=== PATIENT | female | born 1990 | race Caucasian/White ===

== ENCOUNTER 2017-09-13 05:50 | Inpatient (IN) ==
--- OUTSIDE RECORDS SUMMARY | 2017-09-13 05:57 | External Medical Summary | Continuity of Care Document ---
:1990 Author Organization [facility] Address [address] [place], [place] [id number] Phone Care Team Providers Name Role Phone Nicholas Escobedo MD, FAAFP Unavailable Unavailable Allergies, Adverse Reactions, Alerts Substance Reaction Severity Status No Known Drug Allergies Unknown Active Medications Medication Instructions Dosage Effective Dates Status Comments (start - stop) valacyclovir 500 mg take 1 tablet by 500 MG - Active tablet oral route every day 27 mg-0.8 take 1 by Oral Not Available - Active mg tablet route every day Problems Condition Effective Dates (start - stop) Clinical Status Encntr for testing tech exam (general) - (routine) w/o abn findings Follow-Up, Routine - Polyhydramnios, third trimester, not - applicable or unsp Encounter for suprvsn of normal - , third trimester Encounter For Screening For - Streptococcus B 35 weeks gestation of - Mild hyperemesis gravidarum - Encounter for suprvsn of normal - , first trimester 13 weeks gestation of - Herpesviral infection, unspecified - Polyhydramnios, third trimester, not - applicable or unsp Encounter for suprvsn of normal - , third trimester 38 weeks gestation of - Supervision of other high risk - pregnancies, third trimester Polyhydramnios, third trimester, not - applicable or unsp 37 weeks gestation of - Supervision of other high risk - pregnancies, third trimester Polyhydramnios, third trimester, not - applicable or unsp 38 weeks gestation of - Threatened Mild hyperemesis gravidarum - Maternal care for excess growth, - third trimester, unsp Polyhydramnios, third trimester, not - applicable or unsp 35 weeks gestation of - Mild hyperemesis gravidarum - Maternal care for excess growth, - third trimester, unsp 30 weeks gestation of - Mild hyperemesis gravidarum - Encounter for suprvsn of normal - , second trimester 20 weeks gestation of - Maternal care for excess growth, - second tri, unsp Encounter for suprvsn of normal - , second trimester 17 weeks gestation of - Maternal care for excess growth, - second tri, unsp 20 weeks gestation of - Maternal care for excess growth, - third trimester, unsp Polyhydramnios, third trimester, not - applicable or unsp 35 weeks gestation of - Maternal care for excess growth, - third trimester, unsp Polyhydramnios, third trimester, not - applicable or unsp 35 weeks gestation of - Polyhydramnios, third trimester, not - applicable or unsp 38 weeks gestation of - Polyhydramnios, third trimester, not - applicable or unsp 37 weeks gestation of - Abnormal weight loss Encntr for f/u exam aft trtmt for cond oth than malig neoplm Encounter for removal of intrauterine - contraceptive device Pap Smear Screening, Cervix - Encounter for insertion of - intrauterine contraceptive device Encounter for suprvsn of normal - , first trimester 9 weeks gestation of - Encounter for suprvsn of normal - , second trimester 23 weeks gestation of - Encounter for suprvsn of normal - , second trimester 26 weeks gestation of - Encounter for suprvsn of normal - , third trimester 32 weeks gestation of - Herpes Simplex Virus Active Active Procedures Procedure Date OB Visit No Charge Results Test Name Date and Time Measure Units Reference Range Abnormal Flag Comments Panel Description: STREPTOCOCCUS, GROUP B CULTURE STREPTOCOCCUS, GROUP B 15:15:00 SEE NOTE A STREPTOCOCCUS , GROUP B CULTURE CULTURE MICRO NUMBER: [id number] TEST STATUS: FINAL SPECIMEN SOURCE: VAGINAL/RECTAL SPECIMEN QUALITY: ADEQUATE RESULT: Group B Streptococcus isolated Beta-hemolytic Streptococci are predictably susceptible to penicillin and other beta-lactams. Susceptibility testing not routinely performed. Note per CDC guidelines optimal recovery is achieved by swabbing both the lower vagina and rectum (through the anal sphincter).Test performed at [facility]. [id number] [place] [address]Ubmvltyf: SHRUTHI MO DO,MPH Advance Directives Directive Yes / No Effective Date File Name Unknown Encounters Encounter Practice Location Reason(s) Diagnoses Date Provider Care Team Description For Visit Members [place] Herpesviral Sob[place] In Womens infection, 0-201 [place] [place], unspecifiedPolyhy 8 [address] dramnios, third Medical 152, trimester, not [facility] [place], applicable or [facility], [place], unspEncounter for Suite , suprvsn of normal 120, [place] , third [place], tel:[phone] weeks [place] [id number], [place]. tel:[phone] Adam [place] Supervision of Rebecca In Womens other high risk 6-201 [place] [place], pregnancies, 8 700 [address] third Medical 1522, trimesterPolyhydr [facility] [place], amnios, [facility] Hugo Ibanez [place], trimester, not 120, [id number], applicable or [place], [place] unsp38 weeks [place], tel:[phone] gestation [phone] , [place]. tel: [phone] [facility] Polyhydramnios, Wilmar-2 Rebecca In Womens Ultrasound third trimester, 6-201 [place] [place], not applicable or 8 700 [address] unsp38 weeks Medical 1522, gestation of [facility] [place] Ibanez, 120, , [place], tel:[phone] , [place]. tel: [phone] [facility] Supervision of Wilmar-1 Rebecca In Womens other high risk 9-201 [place] [place], pregnancies, 8 700 PO Box third Medical 1522, trimesterPolyhydr [facility], amnios, third [place]bane[place], trimester, not 120, [id number], applicable or [place], [place] unsp37 weeks [place], tel:+ gestation [phone] , [place]. tel: [phone] [facility] Polyhydramnios, Wilmar-1 Rebecca In Womens Ultrasound third trimester, 9-201 [place] [place], not applicable or 8 700 [address] Box unsp37 weeks Medical 1522, gestation of [facility] [place] Ibanez, 120, , [place], tel:[phone] , [place]. tel: [phone] [facility] Polyhydramnios, Wilmar-1 Rebecca In Womens third trimester, 1-201 [place] [place], not applicable or 8 700 PO Box unspEncounter for Medical 1522, suprvsn of normal [facility], , third [place] Ibanez, trimesterEncounte 120, [id number], r For [place] Screening For [place], tel:[phone] [id number] weeks gestation , [place]. of tel: [phone] [facility] Maternal care for Wilmar-1 Rebecca In Womens Ultrasound excess 1-201 [place] [place], growth, third 8 700 PO Box trimester, Medical 1522, unspPolyhydramnio [facility] s, third [place] Ibanez, trimester, not 120, , applicable or [place], [place] unsp35 weeks [place], tel: gestation of , [place]. tel: [phone] [facility] Mild hyperemesis Wilmar-0 Sobbing Referring In Womens gravidarumMaterna 5-201 Deepak. Provider: coby Pleitez care for excess 8 700 Deepak [address] growth, Medical Sobbing L, 1522, third trimester, Center [address] [place] [address], unspPolyhydramnio [facility] [place], s, third Suite Center [id number], trimester, not 120, Drive [place] applicable or Antoni, [address], tel: unsp35 weeks TAINA, [place], [place] [address], [place], [address]. [place]. tel: tel: [phone] [facility] Maternal care for Wilmar-0 Rebecca In Womens Ultrasound excess 5-201 [place] NIDA, growth, third 8 700 PO Box trimester, Medical 1522, unspPolyhydramnio [facility], s, third [place] Ibanez, trimester, not 120, [id number], applicable or [place], [place] unsp35 weeks [place], tel: gestation of , [place]. tel: [phone] [facility] Encounter for Gabriel-1 Rebecca In Womens suprvsn of normal 8-201 [place] NIDA, , third 8 700 PO Box [email or web address] weeks Medical 1522, gestation of [facility], Hugo Ibanez [place], 120, [id number], [place], tel:901 , [place]. tel: [phone] [facility] Mild hyperemesis Gabriel-0 Sobbing In Womens gravidarumMaterna 5-201 [facility]. [facility] NIDA, l care for excess 8 700 PO Box growth, Medical 1522, third trimester, [facility], unsp[address], [place], gestation of Suite , 120, [place] Anton[place], tel: [place], 114, [place]. tel: [phone] Adam [place] Encounter for May-0 Rebecca In Womens suprvsn of normal 9-201 [place] [place], , second 8 700 PO Box [email or web address] weeks Medical 1522, gestation of [facility], [place] Ibanez, 120, [id number], [place], tel:[phone] , [place]. tel: [phone] Adam [place] Encounter for Apr-1 Rebecca In Womens suprvsn of normal 7-201 [place] [place], , second 8 700 PO Box [email or web address] weeks Medical 1522, gestation of [facility], [place] Ibanez, 120, , [place], [place], tel:[phone] , [place]. tel: [phone] Adam [place] Mild hyperemesis Mar-2 Rebecca In Womens gravidarumEncount 2-201 [place] NIDA, er for suprvsn of 8 700 PO Box normal , Medical 1522, second [facility], [id number] weeks [place], gestation of 120, , [place], [place], tel:[phone] , [place]. tel: [phone] Adam [place] Maternal care for Mar-2 Rebecca In Womens Ultrasound excess 2-201 [place] NIDA, growth, second 8 700 PO Box tri, unsp20 weeks Medical 1522, gestation of [facility], [place] Ibanez, 120, , [place], tel:[phone] , [place]. tel: [phone] Adam [place] Maternal care for Mar-0 Rebecca In Womens excess 1-201 [place] [place], growth, second 8 700 PO Box tri, Medical 1522, unspEncounter for [facility], suprvsn of normal [place], , second 120, [id number], [email or web address] weeks [place], gestation of [place], tel:[phone] , [place]. tel: [phone] Adam [place] Mild hyperemesis Feb-0 Rebecca In Womens gravidarumEncount 6-201 [place] NIDA, er for suprvsn of 8 700 PO Box normal , Medical 1522, first [email or web address] [facility], weeks gestation [place] Ibanez, of 120, , [place], [place], tel:[phone] , [place]. tel: [phone] Adam [place] Encounter for Luis A-0 Rebecca In Womens suprvsn of normal 8-201 [place] NIDA, , first 8 700 PO Box trimester9 weeks Medical 1522, gestation of [facility], [place] Ibanez, 120, , [place], [place], tel:[phone] , [place]. tel: [phone] Adam [place] Threatened Sep-2 Rebecca In Womens 9-201 [place]. Miguel ALVA, 7 700 PO Box Medical 1522, [place], [place] Ibanez, 120, , [place], [place], tel:[phone] , [place]. tel: [phone] Adam [place] Encntr for testing tech Aug-0 Rebecca In Womens exam (general) 1-201 [place] NIDA, (routine) w/o abn 7 700 PO Box findingsEncounter Medical 1522, for removal of [facility], intrauterine [place]z, contraceptive 120, , device [place], [place], tel:[phone] , [place]. tel: [phone] Adam [place] Abnormal weight Feb-2 Rebecca In Womens lossEncntr for 1-201 [place] NIDA, f/u exam aft 7 700 PO Box trtmt for cond Medical 1522, oth than malig [place], neoplm [place] Ibanez, 120, , [place], [place], tel:[phone] , [place]. tel:[phone] [place] Encounter for Luis A-1 Rebecca In Womens insertion of 2-201 [place] NIDA, intrauterine 7 700 PO Box contraceptive Medical 1522, [facility], [facility] [place], 120, [id number], [place], tel:+ [phone] , [place]. tel: [phone] Adam [place] Gabriel-2 Rebecca In Womens Follow-Up, 9- [facility] [place], Routine 6 700 PO Box Medical 1522, [place] [address] Mj, [facility] [place], 120, [id number], [place], tel:[phone] , [place]. tel: [phone] Adam [place] Mar-2 Rebecca Referring In Womens 3-201 [place]. Provider: Health [place], 6 700 [place] PO Box Medical Rebecca L, 1522, [place] [address], [facility] [place], 120, [place] [id number], Antoni [facility] 120, [place], Antoni, tel:[phone] [place], , [place]. [id number]. tel: tel: [phone] Adam [place] Feb-1 Rebecca In Womens 9-201 [facility] [place], 6 700 PO Box Medical 1522, [address] [address] Mj, [facility] [place], 120, [id number], [place], tel:[phone] , [place]. tel: [phone] [place] Nov-1 Rebecca In Womens 3-201 [facility] [place], 5 700 PO Box Medical 1522, [address], [facility] [place], 120, [id number], [place], tel:[phone] , [place]. tel: [phone] [place] Pap Smear Oct-1 Rebecca In Womens Screening, Cervix 3-201 [facility] [place], 5 700 PO Box Medical 1522, [place] [address] Mj, [facility] [place], 120, [id number], [place], tel:[phone] , [place]. tel: [phone] [place] Oct-0 Rebecca In Womens 5-201 [facility] [place], 5 700 PO Box Medical 1522, Center Dr Mj, [place], 120, [id number], [place], tel:[phone] , [place]. tel: [phone] Family History Family Member Diagnosis Age At Onset No family history of Colon Cancer Maternal Grandmother Thyroid Disorder Mother Thyroid Disorder No family history of Ovarian Cancer No family history of Venous Thrombosis No family history of Stroke No family history of Lung Disease Sister Thyroid Disorder No family history of Kidney Disease No family history of Osteoporosis No family history of Diabetes No family history of Uterine Cancer No family history of Hypertension No family history of Breast Cancer No family history of Epilepsy No family history of Cardiovascular Disease No family history of Pulmonary Embolism Immunizations Vaccine Date Status Comments Tdap completed Source: New Immunization Record Tdap completed Source: New Immunization Record Influenza, seasonal, injectable, completed Note: work ; Source: Other preservative free, 3 yrs or Provider older Td (adult) preservative free completed Note: Per Pt report ; Source: Other Provider Payers Payer name Insurance type Covered democrat ID Authorization(s) [employer] 39254 CI [id number] [employer] 42677 CI [id number] [employer] 54658 CI [id number] Social History Type Description Quantity Date Captured Alcohol Use Details No Caffeine Use Details Unknown Tobacco Use Status Unknown Smoking Status Never smoker Vital Signs Date / Height Weight BMI Pulse Blood Temperature Respiratory Body Head BMI Time: Rate Pressure Rate Surface Circumference percentile Area 154.90 29.2 127/72 2018 lbs 7 mm[Hg] 3:35 kg/m PM eter (2) Chief Complaint And Reason For Visit Unknown Chief Complaint And Reason For Visit Reason For Referral Reason For Referral Unknown Plan Of Care Date Type Action Status Appointment Pranav Young BOOKED Appointment Pranav Young BOOKED Appointment Pranav Young BOOKED Future Order: Radiology Order Complete OB Ultrasound > 14 Weeks Ordered ([id number]) Future Order: Radiology Order Ultrasound OB Follow-up ([id number]) Ordered Future Order: Radiology Order Biophysical Profile without NST Ordered ([id number]) Future Order: Radiology Order Biophysical Profile without NST Ordered ([id number]) Future Order: Radiology Order Biophysical Profile without NST Ordered ([id number]) Future Order: Radiology Order Biophysical Profile without NST Ordered ([id number]) Future Order: Lab Order Pap Smear With HPV Reflex If ASCUS Ordered ([id number]) Date Type Problem Goal Intervention Status Start Date Unknown. History Of Present Illness Encounter Date Complaint History Of Present Illness This patient has no known history of present illness Functional Status Encounter Date Functional Assessment Cognitive Assessment Unknown Medications Administered Medication Instructions Dosage Effective Dates (start - stop) Status Comments Drug Treatment Unknown Instructions Date Instruction Additional Information nutrition and weight gain counseling, special diet HIV and other routine tests risk factors identified by history anticipated course of care toxoplasmosis precautions (cats / raw meat) sexual activity exercise indications for ultrasound influenza vaccine environmental / work hazards travel use of any medications (including supplements, vitamins, herbs, OTC drugs) domestic violence seat belt use childbirth classes / hospital facilities hospital registration genetic testing Giving encouragement to exercise Related to Body mass index 29.0-29.9 ACOG book HIV and other routine tests risk factors identified by history anticipated course of care nutrition and weight gain counseling, special diet toxoplasmosis precautions (cats / raw meat) sexual activity exercise indications for ultrasound influenza vaccine environmental / work hazards travel use of any medications (including supplements, vitamins, herbs, OTC drugs) domestic violence seat belt use childbirth classes / hospital facilities hospital registration genetic testing new ob handbook
--- OUTSIDE RECORDS SUMMARY | 2017-09-13 05:57 | External Medical Summary | Continuity of Care Document ---
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) w/o abn findings Follow-Up, Routine - Maternal care for excess growth, - [...] or unsp 37 weeks gestation of - Polyhydramnios, third trimester, not - applicable or unsp Encounter for suprvsn of normal - , third trimester Encounter For Screening For - Streptococcus B 35 weeks gestation of - Abnormal weight loss [...] Simplex Virus Active Active Procedures Procedure Date biophys prfl w/o nstress test Results Test Name Date and Time Measure Units Reference Range Abnormal Flag Comments Unknown Advance Directives Directive Yes / No Effective Date File Name Unknown Encounters Encounter Practice Location Reason(s) Diagnoses Date Provider Care Team Description For Visit [facility] Herpesviral Aug- Sobbing In Womens infection, 0-201 [facility], unspecifiedPolyhy 8 700 [address] dramnios, third Medical 1522, trimester, not [facility], applicable or [facility], [place], unspEncounter for [id number], suprvsn of normal 120, [place] , third [place], tel:[phone] [email or web address] [place] [address], [place]. tel: [phone] Adam [place] Supervision of Aug- Rebecca In Womens other high risk 6-201 [facility], pregnancies, 8 700 [address] third Medical 1522, trimesterPolyhydr [facility], amnios, third [place], trimester, not 120, [id number], applicable or [place], unsp38 weeks [place], tel:[phone] gestation of [phone] [id number] , [place]. tel:[phone] Adam [place] Polyhydramnios, Aug- Rebecca In Womens Ultrasound third trimester, 6-201 [facility], not applicable or 8 700 [address] unsp38 weeks Medical 1522, gestation of [facility], [place] Ibanez, 120, [id number], [place], tel:[phone] , [place]. tel:[phone] Adam [place] Supervision of Aug-1 Rebecca In Womens other high risk 9- [facility], pregnancies, 8 700 PO Box third Medical 1522, trimesterPolyhydr [facility], amnios, third [place] Ibanez, trimester, not 120, [id number], applicable or [place], [place] unsp37 weeks [place], tel: gestation of [id number] , [place]. tel: [phone] [facility] Polyhydramnios, Aug-1 Rebecca In Womens Ultrasound third trimester, [facility], not applicable or 8 700 [address] unsp37 weeks Medical 1522, gestation of [facility], [place] Ibanez, 120, [id number], [place], tel:[phone] , [place]. tel: [phone] Adam [place] Polyhydramnios, Aug-1 Rebecca In Womens third trimester, [facility], not applicable or 8 700 PO Box unspEncounter for Medical 1522, suprvsn of normal [facility], , third [place] Ibanez, trimesterEncounte 120, [id number], r For [place], Screening For [place], tel: Streptococcus B35 [id number] weeks gestation , [place]. of tel: [phone] Adam [place] Maternal care for Aug-1 Rebecca In Womens Ultrasound excess [facility] NIDA, growth, third 8 700 PO Box trimester, Medical 1522, unspPolyhydramnio [facility], s, third [place] Ibanez, trimester, not 120, [id number], applicable or [place], [place] unsp35 weeks [place], tel: gestation of [id number] , [place]. tel: [phone] Adam [place] Mild hyperemesis Wilmar-0 Sobbing Referring In Womens gravidarumMaterna 5-201 Deepak. Provider: coby Pleitez care for excess 8 700 Deepak [address] growth, Medical Sobbing L, 1522, third trimester, Center [address] [place] [address], [address], Medical [place], s, third [address] [place] [id number], trimester, not 120, Drive [place] applicable or [place], [address], tel:+ unsp35 weeks TANIA, [place], [place] [address], [place], [address]. [place]. tel: tel: [phone] Adam [place] Maternal care for Wilmar-0 Rebecca In Womens Ultrasound excess 5-201 [facility] NIDA, growth, third 8 700 PO Box trimester, Medical 1522, unspPolyhydramnio [facility], s, third [place] Ibanez, trimester, not 120, [id number], applicable or [place], unsp35 weeks [place], tel: gestation of , [place]. tel: [phone] Adam [place] Encounter for Gabriel-1 Rebecca In Womens suprvsn of normal 8-201 [facility] NIDA, , third 8 700 [address] [email or web address] weeks Medical 1522, gestation of [facility], [place] Ibanez, 120, , [place], [place], tel:[phone] , [place]. tel: [phone] Adam [place] Mild hyperemesis Gabriel-0 Sobbing In Womens gravidarumMaterna 5-201 Deepak. [facility] NIDA l care for excess 8 700 PO Box growth, Medical 1522, third trimester, [facility], unsp30 weeks [place], [place], gestation of Suite , 120, [place] Anton[place], tel: [place], 114, [place]. tel: [phone] Adam [place] Encounter for May-0 Rebecca In Womens suprvsn of normal 9-201 [facility] NIDA, , second 8 700 [address] Box [email or web address] weeks Medical 1522, gestation of [facility], [place] Ibanez, 120, , [place], [place], tel:[phone] , [place]. tel: [phone] Adam [place] Encounter for Apr-1 Rebecca In Womens suprvsn of normal 7-201 [facility] NIDA, , second 8 700 PO Box [email or web address] weeks Medical 1522, gestation of [facility], [place] Ibanez, 120, , [place], [place], tel:+ [phone] , [place]. tel:[phone] [facility] Mild hyperemesis Mar-2 Rebecca In Womens gravidarumEncount 2-201 [facility] PA, er for suprvsn of 8 700 PO Box normal , Medical 1522, second [facility], weeks [place] Ibanez, gestation of 120, , [place], [place], tel:+ [phone] , [place]. tel:[phone] [facility] Maternal care for Mar-2 Rebecca In Womens Ultrasound excess 2-201 [facility] PA, growth, second 8 700 PO Box tri, unsp20 weeks Medical 1522, gestation of [facility], [place] Ibanez, 120, , [place], [place], tel:+ [phone] , [place]. tel: [phone] [facility] Maternal care for Mar-0 Rebecca In Womens excess 1-201 [facility], growth, second 8 700 PO Box tri, Medical 1522, unspEncounter for [facility], suprvsn of normal [place], , second 120, , [email or web address] weeks [place], gestation of [place], tel:+ [phone] , [place]. tel: [phone] [facility] Mild hyperemesis Feb-0 Rebecca In Womens gravidarumEncount 6-201 [facility] PA, er for suprvsn of 8 700 PO Box normal , Medical 1522, first [email or web address] [facility], weeks gestation [place] Ibanez, of 120, , [place], [place], tel:[phone] , [place]. tel:[phone] [facility] Encounter for Luis A-0 Rebecca In Womens suprvsn of normal 8-201 [facility], , first 8 700 PO Box trimester9 weeks Medical 1522, gestation of [facility], , [place], 120, [id number], [place], [place], tel:+ [phone] , [place]. tel: [phone] Adam [place] Threatened Sep-2 Rebecca In Womens 9-201 [facility], 7 700 PO Box Medical 1522, [place] [address], [place], 120, [id number], [place], [place], tel:+ [phone] , [place]. 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, (routine) w/o abn 7 700 PO Box findingsEncounter Medical 1522, for removal of [facility], intrauterine [place] Ibanez, contraceptive 120, , device [place], [place], tel:[phone] , [place]. tel: [phone] Adam [place] Abnormal weight Feb-2 Rebecca In Womens lossEncntr for 1-201 [facility], f/u exam aft 7 700 PO Box trtmt for cond Medical 1522, oth than malig [place] neoplm , [facility] [place], 120, , [place], [place], tel:+ [phone] , [place]. tel: [phone] Adam [place] Encounter for Luis A-1 Rebecca In Womens insertion of 2-201 [facility] PA, intrauterine 7 700 PO Box contraceptive Medical 1522, device [address] [address] Mj, [place], 120, [id number], [place], tel:+ [phone] , [place]. tel: [phone] Adam [place] Gabriel-2 Rebecca In Womens Follow-Up, 9-201 [facility], Routine 6 700 PO Box Medical 1522, [place] [address] Mj, [place], 120, [id number], [place], [place], tel:[phone] , [place]. tel: [phone] Adam [place] Mar-2 Rebecca Referring In Womens 3-201 [facility]. Provider: Health PA, 6 700 [facility] Rebecca L, 1522, Center [facility] [address], [place], 120, [place] [address] [id number], [place], [facility] 120, [place], [place], tel:[phone] [place], , [place]. [id number]. tel: tel:+ [phone] Adam [place] Feb-1 Rebecca In Womens 9-201 [facility] PA, 6 700 [facility] 1522, [place] [address] Mj, [facility] [place], 120, [id number], [facility] [place], tel:[phone] , [place]. tel: [phone] Adam [place] Nov-1 Rebecca In Womens 3-201 [facility], 5 700 [facility] 1522, [place] [address] Mj, [facility] [place], 120, [id number], [facility] [place], tel:[phone] , [place]. tel: [phone] Adam [place] Pap Smear Oct-1 Rebecca In Womens Screening, Cervix 3-201 [facility], 5 700 [facility] 15[address], [place] [address] Mj, [facility] [place], 120, [id number], [facility] [place], tel:[phone] , [place]. tel: [phone] Adam [place] Oct-0 Rebecca In Womens 5-201 [facility], 5 700 [facility] 1522, [place] [address] Mj, [facility] [place], 120, [id number], [place], tel:[phone] , [place]. tel: [phone] Family History Family Member Diagnosis Age At [...] Provider Payers Payer name Insurance type Covered alliance party ID Authorization(s) [employer] 86935 CI [id number] [employer] 02908 CI [id number] [employer] 14581 CI [id number] Social History Type Description Quantity Date Captured Unknown Vital Signs Date / Height Weight BMI Pulse Blood Temperature Respiratory Body Head BMI Time: Rate Pressure Rate Surface Circumference percentile Area Unknown Chief Complaint And Reason For Visit Unknown Chief Complaint And Reason For Visit Reason For Referral Reason For Referral Unknown Plan Of Care Date Type Action Status Appointment Pranav Young BOOKED Appointment Pranav Young BOOKED Appointment Pranav Young BOOKED Future Order: Radiology Order Biophysical Profile without NST Ordered ([id number]) Future Order: Radiology Order Complete OB Ultrasound > 14 Weeks Ordered ([id number]) Future Order: Radiology Order Ultrasound OB Follow-up ([id number]) Ordered Future Order: Radiology Order Biophysical Profile without NST Ordered ([id number]) Future Order: Radiology Order Biophysical Profile without NST Ordered ([id number]) Future Order: Radiology Order Biophysical Profile without NST Ordered ([id number]) Future Order: Lab Order Pap Smear With [...]
--- OUTSIDE RECORDS SUMMARY | 2017-09-13 05:57 | External Medical Summary | Continuity of Care Document ---
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) w/o abn findings Follow-Up, Routine - Mild hyperemesis gravidarum - Maternal care for excess growth, - third trimester, unsp Polyhydramnios, third trimester, not - applicable or unsp 35 weeks gestation of - Mild hyperemesis gravidarum - Encounter for suprvsn of normal - , first trimester 13 weeks gestation of - Supervision of other high risk - pregnancies, third trimester Polyhydramnios, third trimester, not - applicable or unsp 37 weeks gestation of - Threatened Mild hyperemesis [...] Simplex Virus Active Active Procedures Procedure Date Immuniz admnin, 1 vac, sngl/combo 19 Yrs + TDAP VACCINE >7 IM OB Visit No Charge Results Test Name Date and Time Measure Units Reference Range Abnormal Flag Comments Unknown Advance Directives Directive Yes / No Effective Date File Name Unknown Encounters Encounter Practice Location Reason(s) Diagnoses Date Provider Care Team Description For Visit [facility] Supervision of Aug-1 Rebecca In Womens other high risk [facility], pregnancies, 8 700 PO [address] third Medical 1522, trimesterPolyhydr [facility], amnios, third [place]z, trimester, not 120, [id number], applicable or Antoni [place] unsp37 weeks [place], tel:[phone] gestation of [id number] [address] , [place]. tel: [phone] [facility] Polyhydramnios, Aug- Rebecca In Womens Ultrasound third trimester, [facility], not applicable or 8 700 PO Box unsp37 weeks Medical 1522, gestation of [facility], [place] Ibanez, 120, [id number], [place], tel: [phone] , [place]. tel: [phone] [facility] Polyhydramnios, Aug-1 Rebecca In Womens third trimester, [facility], not applicable or 8 700 PO Box unspEncounter for Medical 1522, suprvsn of normal [facility], , third [place] Ibanez, trimesterEncounte 120, [id number], r For [place], [place] Screening For [place], tel:[phone] Streptococcus B35 [id number] weeks gestation , [place]. of tel: [phone] [facility] Maternal care for Aug- Rebecca In Womens Ultrasound excess [facility]. [facility] NIDA, growth, third 8 700 PO Box trimester, Medical 1522, unspPolyhydramnio [facility], s, third [place], trimester, not 120, [id number], applicable or Antoni [place] unsp35 weeks [place], tel:+[phone] gestation of [id number] [address] , [place]. tel: [phone] [facility] Mild hyperemesis Wilmar-0 Sobbing Referring In Womens gravidarumMaterna 5-201 Deepak. Provider: coby Pleitez care for excess 8 700 Deepak PO Box growth, Medical Sobbing L, 1522, third trimester, Center [address] [place] [address], unspPolyhydramnio [facility] [place], s, third Suite Center [id number], trimester, not 120, Drive [place] applicable or [place], [address], tel: unsp35 weeks TANIA, [place], [place] [address], [place], [address]. [place]. tel: tel: [phone] Adam [place] Maternal care for Wilmar-0 Rebecca In Womens Ultrasound excess 5-201 Herm[facility]. Miguel ALVA, carlos, third 8 700 PO Box trimester, Medical 1522, unspPolyhydramnio [facility], s, third [place] Ibanez, trimester, not 120, , applicable or Antoni, unsp35 weeks [place], tel: gestation of , [place]. tel: [phone] Adam [place] Encounter for Gabriel-1 Rebecca In Womens suprvsn of normal 8-201 [facility]. Miguel ALVA, , third 8 700 PO Box [email or web address] weeks Medical 1522, gestation of [facility], [place]z, 120, [id number], [place], tel:[phone] , [place]. tel: [phone] Adam [place] Mild hyperemesis Gabriel-0 Sobbing In Womens gravidarumMaterna 5-201 Deepak. coby Pleitez care for excess 8 700 PO Box growth, Medical 1522, third trimester, [facility], un[address], [place], gestation of [id number], 120, [place], tel:+[phone] [place], 114, [place]. tel: [phone] Adam [place] Encounter for May-0 Rebecca In Womens suprvsn of normal 9-201 [facility] NIDA, , second 8 700 PO Box [email or web address] weeks Medical 1522, gestation of [facility], [place]z, 120, [id number], [place], tel:+ [phone] , [place]. tel: [phone] [facility] Encounter for Apr-1 Rebecca In Womens suprvsn of normal 7-201 [facility], , second 8 700 PO Box [email or web address] weeks Medical 1522, gestation of [facility], [place]banez, 120, , [place], [place], tel:+ [phone] , [place]. tel:[phone] [facility] Mild hyperemesis Mar-2 Rebecca In Womens gravidarumEncount 2-201 [facility] PA, er for suprvsn of 8 700 PO Box normal , Medical 1522, second [facility], [email or web address] weeks [place], gestation of 120, , [place], [place], tel:[phone] , [place]. tel: [phone] [facility] Maternal care for Mar-2 Rebecca In Womens Ultrasound excess 2-201 [facility] PA, growth, second 8 700 PO Box tri, unsp20 weeks Medical 1522, gestation of [facility], [place]z, 120, , [place], [place], tel:+ [phone] , [place]. tel: [phone] [facility] Maternal care for Mar-0 Rebecca In Womens excess 1-201 [facility] PA, growth, second 8 700 PO Box tri, Medical 1522, unspEncounter for [facility], suprvsn of normal [place], , second 120, [id number], [email or web address] weeks [place], gestation of [place], tel:[phone] , [place]. tel:[phone] [facility] Mild hyperemesis Feb-0 Rebecca In Womens gravidarumEncount 6-201 [facility] PA, er for suprvsn of 8 700 PO Box normal , Medical 1522, first [email or web address] [facility], weeks gestation [place]z, of 120, , [place], tel:+ [phone] , [place]. tel:[phone] [facility] Encounter for Luis A-0 Rebecca In Womens suprvsn of normal 8-201 [facility] NIDA, , first 8 700 PO Box trimester9 weeks Medical 1522, gestation of [facility], [place]banez, 120, , [place], [place], tel:+ [phone] , [place]. tel:[phone] [facility] Threatened Sep-2 Rebecca In Womens 9-201 [facility] NIDA, 7 700 PO Box Medical 1522, [place], [place]banez, 120, , [place], [place], tel:[phone] , [place]. 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 PA, (routine) w/o abn 7 700 PO Box findingsEncounter Medical 1522, for removal of [facility], intrauterine [place]z, contraceptive 120, , device [place], [place], tel:[phone] , [place]. tel:[phone] [facility] Abnormal weight Feb-2 Rebecca In Womens lossEncntr for 1-201 [facility] PA, f/u exam aft 7 700 PO Box trtmt for cond Medical 1522, [facility] [place], neoplm [place], 120, , [place], [place], tel:+ [phone] , [place]. tel:[phone] [facility] Encounter for Luis A-1 Rebecca In Womens insertion of 2-201 [facility] NIDA, intrauterine 7 700 PO Box contraceptive Medical 1522, device [place], [place]z, 120, , [place], [place], tel:[phone] , [place]. tel:[phone] Adam [place] Gabriel-2 Rebecca In Womens Follow-Up, 9- [facility] PA, Routine 6 700 [facility] Medical 1522, [place] [address], [facility] [place], 120, [id number], [place], [place], tel:+ [phone] , [place]. tel: [phone] Adam [place] Mar-2 Rebecca Referring In Womens 3-201 [facility]. Provider: Miguel ALVA, 6 700 [facility] PO Box Medical [place] L, 1522, [place] [address], [facility] [place], 120, [place] [id number], [place], [facility] 120, [place], Anton[place], tel:[phone] [place], , [place]. [id number]. tel: tel:+ [phone] Adam [place] Feb-1 Rebecca In Womens 9-201 [facility] NIDA, 6 700 [facility] 1522, [place] [address] [place]j, [facility] [place], 120, [id number], [facility] [place], tel:[phone] , [place]. tel: [phone] Adam [place] Nov-1 Rebecca In Womens 3-201 [facility] NIDA, 5 700 [facility] 1522, [address], [facility] [place], 120, [id number], [facility] [place], tel:[phone] , [place]. tel: [phone] Adam [place] Pap Smear Oct-1 Rebecca In Womens Screening, Cervix 3-201 [facility] NIDA, 5 700 [facility] 1522, [address], [facility] [place], 120, [id number], [place], [place], tel:[phone] , [place]. tel: [phone] Adam [place] Oct-0 Rebecca In Womens 5-201 [facility] NIDA, 5 700 [facility] Medical 1522, [address], [facility] [place], 120, [id number], [facility] [place], tel:[phone] , [place]. tel: [phone] Family History Family Member Diagnosis Age At [...] Provider Payers Payer name Insurance type Covered green party ID Authorization(s) [employer] 25257 CI [id number] [employer] 59185 CI [id number] [employer] 53934 CI [id number] Social History Type Description Quantity Date Captured Alcohol Use Details No Caffeine Use Details Unknown Tobacco Use Status Unknown Smoking Status Never smoker Vital Signs Date / Height Weight BMI Pulse Blood Temperature Respiratory Body Head BMI Time: Rate Pressure Rate Surface Circumference percentile Area 151.20 28.5 120/60 lbs 7 mm[Hg] 11:04 kg/m AM eter (2) Chief Complaint And Reason For Visit Unknown Chief Complaint And Reason For Visit Reason For Referral Reason For Referral Unknown Plan Of Care Date Type Action Status Appointment Pranav Young BOOKED Appointment Pranav Young BOOKED Future Order: Radiology Order Complete OB Ultrasound > 14 Weeks Ordered ([id number]) Future Order: Radiology Order Ultrasound OB Follow-up ([id number]) Ordered Future Order: Radiology Order Biophysical Profile without NST Ordered ([id number]) Future Order: Radiology Order Biophysical Profile without NST Ordered ([id number]) Future Order: Radiology Order Biophysical Profile without NST Ordered ([id number]) Future Order: Lab Order Pap Smear With [...]
--- OUTSIDE RECORDS SUMMARY | 2017-09-13 05:58 | External Medical Summary | Continuity of Care Document ---
:1990 Author Organization [facility] Address [address] [place], [place] [address] Phone Support Name Relationship Address Phone Adam Young spouse [address] [phone] [place] [address] Allergies, Adverse Reactions, Alerts Substance Reaction Severity Status Sulfa (Sulfonamide Antibiotics) Rash Unknown Active Medications Medication Instructions Dosage Effective Dates Status Comments (start - stop) ondansetron HCl 4 mg take 1 tablet by 4 MG - Active tablet ORAL route every 6 hours as needed for nausea Diclegis 10 mg-10 mg take 1 tablet by - Active tablet,delayed oral route every release day in the morning, 1 tablet in the mid-afternoon, and 2 tablets at bedtime valacyclovir 500 mg take 1 tablet by 500 MG - Active tablet oral route every day 27 mg-0.8 take 1 by Oral Not Available - Active mg tablet route every day Problems Condition Effective Dates (start - stop) Clinical Status 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) - (routine) w/o abn findings Follow-Up, Routine - Encounter for insertion of - intrauterine contraceptive device Threatened Abnormal weight loss Encntr for f/u exam aft trtmt for cond oth than malig neoplm Encounter for removal of intrauterine - contraceptive device Pap Smear Screening, Cervix - Herpes Simplex Virus Active Active Procedures Procedure Date Unknown Results Test Name Date and Time Measure Units Reference Range Abnormal Flag Comments Unknown Advance Directives Directive Yes / No Effective Date File Name Unknown Encounters Encounter Practice Location Reason(s) Diagnoses Date Provider Care Team Description For Visit Members Adam [place] Dec-0 Rebecca In Womens 6-201 [facility], 7 700 [address], [address], [place], 120, , [place], tel:[phone] , [place]. tel: [phone] Adam [place] Threatened Sep-2 Rebecca In Womens - [facility] PA, 7 700 [address] Medical [address], [address], [place], 120, [id number], [place], tel:[phone] , [place]. 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 PA, (routine) w/o abn 7 700 PO Box findingsEncounter Medical 1522, for removal of [place] [address], [place], contraceptive 120, , device [place], tel:[phone] , [place]. tel: [phone] Adam [place] Abnormal weight Feb-2 Rebecca In Womens lossEncntr for f/u -201 [facility] NIDA, exam aft trtmt for 7 700 PO Box cond oth than Medical 1522, malig neoplm [address], [place], 120, [id number], [place], tel:[phone] , [place]. tel: [phone] Adam [place] Encounter for Luis A-1 Rebecca In Womens insertion of 2-201 [facility] NIDA, intrauterine 7 700 PO Box contraceptive Medical 1522, device [address], [place], 120, , [place], tel:[phone] , [place]. tel: [phone] Adam [place] Gabriel-2 Rebecca In Womens Follow-Up, Routine - [facility] NIDA, 6 700 [address] Medical [address], [address], [place], 120, , [facility] [place], tel:[phone] , [place]. tel: [phone] Associates [place] Mar-2 Rebecca Referring In Womens 3-201 [facility]. Provider: Health PA, 6 700 [facility] PO Box Medical Rebecca L, 1522, Center [facility] [address] Mj, [facility] [place], 120, [address] [id number], [place], [facility] 120, [place], [place], tel:[phone] [place], , [place]. [id number]. tel: tel:[phone] Associates [place] Feb-1 Rebecca In Womens 9-201 [facility] PA, 6 700 [facility] 1522, [address] [address] [place], [facility] [place], 120, [id number], [facility] [place], tel:[phone] , [place]. tel: [phone] Adam [place] Nov-1 Rebecca In Womens 3-201 [facility] PA, 5 700 [facility] 1522, [place] [address] [place], [facility] [place], 120, [id number], [facility] [place], tel:[phone] , [place]. tel: [phone] Adam [place] Pap Smear Oct-1 Rebecca In Womens Screening, Cervix 3-201 [facility] PA, 5 700 [facility] 1522, [address] [address] [place], [facility] [place], 120, [id number], [facility] [place], tel:[phone] , [place]. tel: [phone] Adam [place] Oct-0 Rebecca In Womens 5-201 [facility] PA, 5 700 [facility] 1522, [address] [address] [place], [facility] [place], 120, [id number], [facility], tel:[phone] , [place]. tel: [phone] Family History Family Member Diagnosis Age At [...] Comments Tdap completed Source: New Immunization Record Influenza, seasonal, injectable, completed Note: work ; Source: Other preservative free, 3 yrs or Provider older Td (adult) preservative free completed Note: Per Pt report ; Source: Other Provider Payers Payer name Insurance type Covered constitution party ID Authorization(s) [employer] 56614 CI [id number] [employer] [id number] CI [id number] Social History Type Description Quantity Date Captured Unknown Vital Signs Date / Height Weight BMI Pulse Blood Temperature Respiratory Body Head BMI Time: Rate Pressure Rate Surface Circumference percentile Area Unknown Chief Complaint And Reason For Visit Unknown Chief Complaint And Reason For Visit Reason For Referral Reason For Referral Unknown Plan Of Care Date Type Action Status Appointment Pranav Young BOOKED Future Order: Lab Order Pap Smear With [...] Treatment Unknown Instructions Date Instruction Additional Information Giving encouragement to exercise Related to Body [...]
--- OUTSIDE RECORDS SUMMARY | 2017-09-13 05:58 | External Medical Summary | Continuity of Care Document ---
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) - (routine) w/o abn findings Follow-Up, Routine - Encounter for suprvsn of normal - , third trimester 32 weeks gestation of - Mild hyperemesis gravidarum - Encounter for suprvsn of normal - , first trimester 13 weeks gestation of - Threatened Mild hyperemesis [...] or unsp 35 weeks gestation of - Abnormal weight [...] second trimester 26 weeks gestation of - Herpes Simplex Virus Active Active Procedures Procedure Date OB Visit No Charge Results Test Name Date and Time Measure Units Reference Range Abnormal Flag Comments Unknown Advance Directives Directive Yes / No Effective Date File Name Unknown Encounters Encounter Practice Location Reason(s) Diagnoses Date Provider Care Team Description For Visit Members Adam [place] Mild hyperemesis Sobbing Referring In Womens gravidarumMaterna 5-201 Deepak. Provider: Health PAcoby care for excess 8 700 Deepak PO Box growth, Medical Sob[place] L, 1522, third trimester, Center [address] [place], [address], Medical [place], s, third Suite Center [id number], trimester, not 120, Drive [place] applicable or Venkat [place] 120, tel:[phone] unsp35 weeks [place], [id number] [place] [id number], [place], [address]. [place]. tel:[phone] tel: [phone] Adam [place] Maternal care for Wilmar-0 Rebecca In Womens Ultrasound excess 5-201 [facility] PA, growth, third 8 700 PO Box trimester, Medical 1522, unspPolyhydramnio [facility], s, third [place], trimester, not 120, [id number], applicable or [place], unsp35 weeks [place], tel: gestation of [phone] , [place]. tel: [phone] Adam [place] Encounter for Gabriel-1 Rebecca In Womens suprvsn of normal 8-201 [facility] PA, , third 8 700 PO Box weeks Medical 1522, gestation of [facility], [place], 120, [id number], [place], tel:[phone] , [place]. tel: [phone] Adam [place] Mild hyperemesis Gabriel-0 Sobbing In Womens gravidarumMaterna 5-201 Deepak. Health NIDA, l care for excess 8 700 PO Box growth, Medical 1522, third trimester, [facility], un[address], [place], gestation of [id number], 120, [place], tel: [place], [phone] [place] [address], [place]. tel: [phone] Adam [place] Encounter for May-0 Rebecca In Womens suprvsn of normal 9-201 [facility] PA, , second 8 700 PO Box [email or web address] weeks Medical 1522, gestation of [facility], [place], 120, [id number], [place], tel:[phone] , [place]. tel: [phone] Adam [place] Encounter for Apr-1 Rebecca In Womens suprvsn of normal 7-201 [facility] PA, , second 8 700 PO Box [email or web address] weeks Medical 1522, gestation of [facility], [place], 120, [id number], [place], [place], tel:[phone] , [place]. tel: [phone] Adam [place] Mild hyperemesis Mar-2 Rebecca In Womens gravidarumEncount 2-201 [facility] PA, er for suprvsn of 8 700 PO Box normal , Medical 1522, second [facility], [email or web address] weeks [place], gestation of 120, , [place], tel:[phone] , [place]. tel: [phone] Associates [place] Maternal care for Mar-2 Rebecca In Womens Ultrasound excess 2-201 [facility] PA, growth, second 8 700 PO Box tri, unsp20 weeks Medical 1522, gestation of [facility], [place], 120, , [place], tel:[phone] , [place]. tel: [phone] [facility] [place] Maternal care for Mar-0 Rebecca In Womens excess 1-201 [facility] PA, growth, second 8 700 PO Box tri, Medical 1522, unspEncounter for [facility], suprvsn of normal [place], , second 120, [id number], [email or web address] weeks [place], gestation of [place], tel:+ [phone] , [place]. tel: [phone] Associates [place] Mild hyperemesis Feb-0 Rebecca In Womens gravidarumEncount 6-201 [facility] PA, er for suprvsn of 8 700 PO Box normal , Medical 1522, first [facility], weeks gestation [place], of 120, [id number], [place], tel:[phone] , [place]. tel: [phone] [facility] [place] Encounter for Luis A-0 Rebecca In Womens suprvsn of normal 8-201 [facility] PA, , first 8 700 PO Box trimester9 weeks Medical 1522, gestation of [facility], [place], 120, [id number], [place], tel:[phone] , [place]. tel: [phone] [facility] [place] Threatened Sep-2 Rebecca In Womens 9- [facility] NIDA, 7 700 PO Box Medical [address], [address], [facility] [place], 120, [id number], [place], tel:[phone] , [place]. 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 PA, (routine) w/o abn 7 700 PO Box findingsEncounter Medical 1522, for removal of [place], intrauterine , [facility], contraceptive 120, , device [place], tel:[phone] , [place]. tel: [phone] [facility] [place] Abnormal weight Feb-2 Rebecca In Womens lossEncntr for -201 [facility] NIDA, f/u exam aft 7 700 PO Box trtmt for cond Medical 1522, oth than malig [place] Mj neoplm , [facility] [place], 120, , [place], [place], tel:[phone] , [place]. tel: [phone] [facility] [place] Encounter for Luis A-1 Rebecca In Womens insertion of 2-201 [facility] NIDA, intrauterine 7 700 PO Box contraceptive Medical 1522, device [address], [facility] [place], 120, [id number], [place], [place], tel:[phone] , [place]. tel: [phone] Adam [place] Gabriel-2 Rebecca In Womens Follow-Up, 9- [facility] NDIA, Routine 6 700 PO Box Medical [address], [address], [facility] [place], 120, [id number], [facility] [place], tel:[phone] , [place]. tel:[phone] Adam [place] Mar-2 Rebecca Referring In Womens 3-201 [facility]. Provider: Health NIDA, 6 700 [facility] PO Box Medical Rebecca L, 1522, [place] [address], [facility] [place], 120, [place] [id number], [place] [facility] 120, [place], [place], tel:+ [phone] [place], , [place]. [id number]. tel: tel:+ [phone] Adam [place] Mar- Rebecca In Womens 9-201 [facility] PA, 6 700 PO Box Medical 1522, [place] Dr Mj, [facility] [place], 120, [id number], [facility] [place], tel:[phone] , [place]. tel: [phone] Adam [place] Nov- Rebecca In Womens 3-201 [facility] PA, 5 700 PO Box Medical 1522, [place] Dr Mj, [facility] [place], 120, [id number], [facility] [place], tel:[phone] , [place]. tel: [phone] Adam [place] Pap Smear Oct- Rebecca In Womens Screening, Cervix 3-201 [facility] PA, 5 700 PO Box Medical 1522, [place] Dr Mj, [facility] [place], 120, [id number], [facility] [place], tel:[phone] , [place]. tel: [phone] Adam [place] Nov-0 Rebecca In Womens 5-201 [facility] PA, 5 700 PO Box Medical 1522, [place] Dr jM, [place], 120, [id number], [facility] [place], tel:[phone] , [place]. tel: [phone] Family History Family Member Diagnosis Age At [...] Provider Payers Payer name Insurance type Covered republican ID Authorization(s) [employer] 97778 CI [id number] [employer] 56298 CI [id number] [employer] 99993 CI [id number] Social History Type Description Quantity Date Captured [...] Complete OB Ultrasound > 14 Weeks Ordered (12916) Future Order: Radiology Order Ultrasound OB Follow-up (92006) Ordered Future Order: Radiology Order Biophysical Profile without NST Ordered ([id number]) Future Order: Lab Order Pap Smear With [...]
--- OUTSIDE RECORDS SUMMARY | 2017-09-13 05:58 | External Medical Summary | Continuity of Care Document ---
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 [facility], 7 700 PO Box [facility] [address] [address] Mj, [facility] [place], 120, [id number], [facility] [place], tel:[phone] , [place]. tel: [phone] Adam [place] Threatened Sep-2 Rebecca In Womens 9-201 [facility] NIDA, 7 700 PO Box Medical [address], [address], [facility] [place], 120, [id number], [facility] [place], tel:[phone] , [place]. 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 PA, (routine) w/o abn 7 700 PO Box findingsEncounter Medical 1522, for removal of [place] Mj, intrauterine , [facility], contraceptive 120, , device [place], tel:[phone] , [place]. tel: [phone] Adam [place] Abnormal weight Feb-2 Rebecca In Womens lossEncntr for f/u 1-201 [facility] PA, exam aft trtmt for 7 700 PO Box cond oth than Medical 1522, malig neoplm [place] [address] Mj, [facility] [place], 120, [id number], [facility] [place], tel:[phone] [address] , [place]. tel: [phone] Associates [place] Encounter for Luis A-1 Rebecca In Womens insertion of 2-201 [facility] NIDA, intrauterine 7 700 PO Box contraceptive Medical 1522, device [address], [facility] [place], 120, [id number], [place], tel:[phone] , [place]. tel: [phone] Adam [place] Gabriel-2 Rebecca In Womens Follow-Up, Routine 9-201 [facility] NIDA, 6 700 PO Box Medical [address], [address], [facility] [place], 120, [id number], [facility] [place], tel:[phone] , [place]. tel: [phone] Adam [place] Mar-2 Rebecca Referring In Womens 3-201 [facility]. Provider: Health NIDA, 6 700 [facility] PO Box Medical Rebecca L, 1522, [place] [address], [facility] Medical [place], 120, [place] , [place] [facility] 120, [place], [place], tel: [phone] [place], , [place]. [id number]. tel: tel: [phone] Adam [place] Feb- Rebecca In Womens 9-201 [facility] PA, 6 700 PO Box Medical 15[address], [place] [address] Mj, [facility] [place], 120, [id number], [facility] [place], tel: [phone] , [place]. tel: [phone] Adam [place] Nov-1 Rebecca In Womens 3-201 [facility] PA, 5 700 PO Box Medical 15[address], [place] [address] Mj, [facility] [place], 120, [id number], [facility] [place], tel:[phone] , [place]. tel: [phone] Adam [place] Pap Smear Oct- Rebecca In Womens Screening, Cervix 3-201 [facility] PA, 5 700 PO Box Medical 15[address], [place] [address] Mj, [facility] [place], 120, [id number], [facility] [place], tel: [phone] , [place]. tel: [phone] Adam [place] Oct-0 Rebecca In Womens 5-201 [facility] PA, 5 700 PO Box Medical [address], [place] [address] Mj, [facility] [place], 120, [id number], [facility] [place], tel: [phone] , [place]. tel: [phone] Family History Family Member Diagnosis Age At [...] type Covered green party ID Authorization(s) [employer] [id number] CI [id number] [employer] 65930 CI [id number] Social History Type Description Quantity Date Captured Alcohol Use Details Unknown Caffeine Use Details Unknown Tobacco Use Status Unknown Smoking Status Unknown Vital Signs Date / Height Weight [...]
--- OUTSIDE RECORDS SUMMARY | 2017-09-13 05:58 | External Medical Summary | Continuity of Care Document ---
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) w/o abn findings Follow-Up, Routine - Encounter for suprvsn of normal - , first trimester 9 weeks gestation of - Encounter for insertion of - intrauterine contraceptive device Threatened Abnormal weight loss Encntr for f/u exam aft trtmt for cond oth than malig neoplm Encounter for removal of intrauterine - contraceptive device Pap Smear Screening, Cervix - Herpes Simplex Virus Active Active Procedures Procedure Date Initial OB Visit 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 Results Test Name Date and Time Measure Units Reference Range Abnormal Flag Comments Panel Description: OBSTETRIC PANEL WHITE BLOOD CELL 10.8 Thousand/uL 3.8-10.8 N COUNT 11:17:00 RED BLOOD CELL 4.38 Million/uL 3.80-5.10 N COUNT 11:17:00 HEMOGLOBIN 13.4 g/dL 11.7-15.5 N 11:17:00 HEMATOCRIT 40.2 % 35.0-45.0 N 11:17:00 MCV 91.8 fL 80.0-100.0 N 11:17:00 MCH 30.6 pg 27.0-33.0 N 11:17:00 MCHC 33.3 g/dL 32.0-36.0 N 11:17:00 RDW 12.1 % 11.0-15.0 N 11:17:00 PLATELET COUNT 283 Thousand/uL 140-400 N 11:17:00 MPV 9.4 fL 7.5-12.5 N 11:17:00 ABSOLUTE 8111 cells/uL 6881-8467 H NEUTROPHILS 11:17:00 ABSOLUTE 2030 cells/uL 850-3900 N LYMPHOCYTES 11:17:00 ABSOLUTE 583 cells/uL 200-950 N MONOCYTES 11:17:00 ABSOLUTE 32 cells/uL 15-500 N EOSINOPHILS 11:17:00 ABSOLUTE 43 cells/uL 0-200 N BASOPHILS 11:17:00 NEUTROPHILS 75.1 % N 11:17:00 LYMPHOCYTES 18.8 % N 11:17:00 MONOCYTES 5.4 % N 11:17:00 EOSINOPHILS 0.3 % N 11:17:00 BASOPHILS 0.4 % N 11:17:00 ANTIBODY SCREEN, NO ANTIBODIES N RBC W/REFL ID, 11:17:00 DETECTED Reference range TITER AND AG No antibodies detected This assay is a screening test for the detection of red blood cell antibodies. The test is not to be used for pretransfusion screening or for the medical management of an alloimmunized . ABO GROUP A 11:17:00 RH TYPE RH(D) 11:17:00 POSITIVE RPR (DX) W/REFL NON-REACTIVE NON-REACTIV N TITER AND 11:17:00 E CONFIRMATORY TESTING HEPATITIS B NON-REACTIVE NON-REACTIV N SURFACE ANTIGEN 11:17:00 E RUBELLA ANTIBODY 4.52 index N Index (IGG) 11:17:00 Interpretation ----- <0.90 Not consistent with Immunity 0.90-0.99 Equivocal > or=1.00 Consistent with Immunity The presence of rubella IgG antibody suggests immunization or past or current infection withrubella virus.Test performed at [facility] [address]Pcoqvqj r: SHRUTHI MO DO,MPH Panel Description: HIV 1/2 ANTIGEN/ANTIBODY,FOURTH GENERATION W/RFL HIV NON-REACTIVE NON-REACTIVE N HIV-1 antigen and HIV-1/HIV- 2 antibodies were AG/AB, 11:17:00 notdetected. There is no laboratory evidence of 4TH GEN HIVinfection. PLEASE NOTE: This information has been disclosed toyou from records whose confidentiality may beprotected by state law. If your state requires suchprotection, then the state law prohibits you frommaking any further disclosure of the informationwithout the specific written consent of the personto whom it pertains, or as otherwise permitted by law.A general authorization for the release of medical orother information is NOT sufficient for this purpose. For additional information please refer tohttp://education.[employer]/faq/UAG771(This link is being provided for informational/educational purposes only.) The performance of this assay has not been clinicallyvalidated in patients less than 2 years old. REPORT COMMENT:FASTING:NOTest performed [place] [place] [address]Tobknxip: SHRUTHI MO DO,MPH Panel Description: Bacteria identified in Urine by Culture CULTURE, URINE, SEE NOTE CULTURE, URINE, ROUTINE MICRO ROUTINE 11:27:00 NUMBER: [id number] TEST STATUS: FINAL SPECIMEN SOURCE: URINE SPECIMEN QUALITY: ADEQUATE RESULT: No GrowthREPORT COMMENT:RFASTING:UNKNOWNTest performed [place] [address]Afmtuhet: SHRUTHI MO DO,MPH Panel Description: CHLAMYDIA/N. GONORRHOEAE RNA, TMA CHLAMYDIA NOT DETECTED NOT DETECTED N TRACHOMATIS RNA, 11:24:00 TMA NEISSERIA NOT DETECTED NOT DETECTED N GONORRHOEAE RNA, 11:24:00 TMA [id number] SEE NOTE This test was 11:24:00 performed using the APTIMA COMBO2 Assay([employer] The analytical performance characteristics of this assay, when used to test SurePath specimens havebeen determined by [employer]. REPORT COMMENT:FASTING:UNKNO WNTest performed at [facility] [id number] [place] [address]Xhxsazbw: SHRUTHI MO DO,MPH Advance Directives Directive Yes / No Effective Date File Name Unknown Encounters Encounter Practice Location Reason(s) Diagnoses Date Provider Care Team Description For Visit Members Adam [place] Encounter for Rebecca In Womens suprvsn of normal [facility], , first 8 700 PO Box trimester9 weeks Medical 1522, gestation of [employer], [place] Ibanez, 120, [id number], [facility] [place], tel:[phone] , [place]. tel:[phone] Adam [place] Threatened Sep-2 Rebecca In Womens [facility], 7 700 PO Box Medical [address], [address] [place], 120, [id number], [place], tel:[phone] , [place]. 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, (routine) w/o abn 7 700 PO Box findingsEncounter Medical 1522, for removal of [employer], intrauterine [place] Ibanez, contraceptive 120, , [facility] [place], tel:[phone] , [place]. tel:[phone] Adam [place] Abnormal weight Feb-2 Rebecca In Womens lossEncntr for f/u 1-201 [facility], exam aft trtmt for 7 700 PO Box cond oth than Medical 1522, malig neoplm [address], [facility] [place], 120, [id number], [place], tel:[phone] , [place]. tel: [phone] Adam [place] Encounter for Luis A-1 Rebecca In Womens insertion of 2-201 [facility], intrauterine 7 700 PO Box contraceptive Medical 1522, device [address]j, [facility] [place], 120, [id number], [place], tel:[phone] , [place]. tel: [phone] Adam [place] Gabriel-2 Rebecca In Womens Follow-Up, Routine - [facility], 6 700 PO Box Medical [address], [address], [facility] [place], 120, [id number], [place], tel:[phone] , [place]. tel: [phone] Adam [place] Mar-2 Rebecca Referring In Womens 3-201 [facility]. Provider: [facility], 6 700 [facility] PO Box Medical Rebecca L, 1522, [place], [facility] [place], 120, [place] [id number], [place] [address], [place], [place], tel:[phone], , [place]. [id number]. tel: tel: [phone] Adam [place] Fe-1 Rebecca In Womens 9-201 [facility], 6 700 PO Box Medical 1522, [address], [facility] [place], 120, [id number], [place], tel:[phone] , [place]. tel: [phone] Adam [place] Nov-1 Rebecca In Womens 3-201 [facility], 5 700 PO Box Medical 15[address], [address], [facility] [place], 120, [id number], [place], tel:[phone] , [place]. tel: [phone] Adam [place] Pap Smear Nov- Rebecca In Womens Screening, Cervix 3-201 [facility]. [facility], 5 700 PO Box Medical 1522, [address], [place], 120, [id number], [facility] [place], tel:[phone] , [place]. tel: [phone] Adam [place] Oct-0 Rebecca In Womens 5-201 [facility]. [facility], 5 700 PO Box Medical 1522, [address], [place], 120, [id number], [facility] [place], tel:[phone] , [place]. tel: [phone] Family History Family Member Diagnosis Age At [...] name Insurance type Covered republican ID [facility]ization(s) [id number] [id number] [facility] [id number] CI [id number] Social History Type Description Quantity Date Captured Alcohol Use Details No Caffeine Use Details No Tobacco Use Status Never smoked tobacco Smoking Status Never smoker Non-Smoking Tobacco Use : No Details Available : No Details Available Details Vital Signs Date / Height Weight BMI Pulse Blood Temperature Respiratory Body Head BMI Time: Rate Pressure Rate Surface Circumference percentile Area 122.80 23.2 119/65 -2018 lbs 0 mm[Hg] 10:42 kg/m AM eter (2) Chief Complaint And [...]
--- OUTSIDE RECORDS SUMMARY | 2017-09-13 05:58 | External Medical Summary | Continuity of Care Document ---
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 findings Follow-Up, Routine - Mild hyperemesis gravidarum - Encounter for suprvsn of normal - , second trimester 20 weeks gestation of - Mild hyperemesis gravidarum - Encounter for suprvsn of normal - , first trimester 13 weeks gestation of - Maternal care for excess growth, - second tri, unsp Encounter for suprvsn of normal - , second trimester 17 weeks gestation of - Threatened Maternal care for excess growth, - second tri, unsp 20 weeks gestation of - Abnormal weight loss Encntr for f/u exam aft trtmt for cond oth betzaida paez neoplm Encounter for removal of intrauterine - contraceptive device Pap Smear Screening, Cervix - Encounter for insertion of - intrauterine contraceptive device Encounter for suprvsn of normal - , first trimester 9 weeks gestation of - Herpes Simplex Virus Active Active Procedures Procedure Date OB 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, er for suprvsn of 8 700 PO Box normal , Medical 1522, second [facility], [id number] weeks [place], gestation of 120, , [facility], tel:[phone] , [place]. tel:[phone] Adam [place] Maternal care for Mar-2 Rebecca In Womens Ultrasound excess 2-201 [facility], growth, second 8 700 PO Box tri, [email or web address] weeks Medical 1522, gestation of [facility], [place] Ibanez, 120, [id number], [facility] [place], tel:[phone] , [place]. tel:[phone] Adam [place] Maternal care for Mar-0 Rebecca In Womens excess 1-201 [facility], growth, second 8 700 PO Box tri, Medical 1522, unspEncounter for [facility], suprvsn of normal [place] Ibanez, , second 120, [id number], [id number] weeks [facility] gestation of [place], tel:[phone] , [place]. tel:[phone] Adam [place] Mild hyperemesis Feb-0 Rebecca In Womens gravidarumEncount 6-201 [facility], er for suprvsn of 8 700 PO Box normal , Medical 1522, first [email or web address] [facility], weeks gestation Hugo Ibanez, of 120, , [place], tel:[phone] , [place]. tel: [phone] Adam [place] Encounter for Luis A-0 Rebecca In Womens suprvsn of normal 8-201 [facility], , first 8 700 PO Box trimester9 weeks Medical 1522, gestation of [facility], Hugo Ibanez, 120, , [place], tel:[phone] , [place]. tel:[phone] Adam [place] Threatened Sep-2 Rebecca In Womens 9-201 [facility] Miguel ALVA, 7 700 PO Box Medical 1522, [place], Hugo Ibanez, 120, , [place], tel:[phone] , [place]. 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, (routine) w/o abn 7 700 PO Box findingsEncounter Medical 1522, for removal of [facility], intrauterine [place] Ibanez, contraceptive 120, , device [place], tel:[phone] , [place]. tel:[phone] Adam [place] Abnormal weight Feb-2 Rebecca In Womens lossEncntr for 1-201 [facility], f/u exam aft 7 700 PO Box trtmt for cond Medical 1522, oth than malig [place], neoplm [place] Ibanez, 120, , [place], tel:[phone] , [place]. tel:[phone] Adam [place] Encounter for Luis A-1 Rebecca In Womens insertion of 2-201 [facility], intrauterine 7 700 PO Box contraceptive Medical 1522, device [facility], Dr, [facility] [place], 120, [id number], [place], tel:[phone] , [place]. tel: [phone] Adam [place] Gabriel-2 Rebecca In Womens Follow-Up, 9- [facility], Routine 6 700 PO Box Medical 1522, [place] [address]j, [facility] [place], 120, [id number], [place], tel:[phone] , [place]. tel: [phone] Adam [place] Mar-2 Rebecca Referring In Womens 3-201 [facility]. Provider: Health [place], 6 700 [facility] PO Box Medical Rebecca L, 1522, [place] [address] [address] j[address], [facility] [place], 120, [place] [id number], [place] [facility] 120, [place], [place], tel:[phone], , [place]. [id number]. tel: tel: [phone] Adam [place] Feb-1 Rebecca In Womens 9-201 [facility], 6 700 PO Box Medical 1522, [place] [address] [place]j, [facility] [place], 120, [id number], [facility] [place], tel:[phone] , [place]. tel: [phone] Adam [place] Nov-1 Rebecca In Womens 3-201 [facility], 5 700 PO Box Medical 1522, [place] [address] [place]j, [facility] [place], 120, [id number], [place], tel:[phone] , [place]. tel: [phone] Adam [place] Pap Smear Oct-1 Rebecca In Womens Screening, Cervix 3-201 [facility], 5 700 PO Box Medical 1522, [place] [address]j, [facility] [place], 120, [id number], [place], tel:[phone] , [place]. tel: [phone] Adam [place] Oct-0 Rebecca In Womens 5-201 [facility], 5 700 PO Box Medical 1522, [place] [address] [place]j, [facility] [place], 120, [id number], [facility] [place], tel:[phone] , [place]. tel: [phone] Family History Family Member Diagnosis Age At [...] Insurance type Covered constitution party ID Authorization(s) [facility] [id number] [facility] [id number] Social History Type Description Quantity Date Captured Alcohol Use Details No Caffeine Use Details Unknown Tobacco Use Status Unknown Smoking Status Never smoker Vital Signs Date / Height Weight BMI Pulse Blood Temperature Respiratory Body Head BMI Time: Rate Pressure Rate Surface Circumference percentile Area 136.00 25.6 111/ lbs 9 mm[Hg] 3:07 kg/m PM eter (2) Chief Complaint And Reason For Visit Unknown Chief Complaint And Reason For Visit Reason For Referral Reason For Referral Unknown Plan Of Care Date Type Action Status Appointment Pranav Young BOOKED Future Order: Radiology Order Complete OB Ultrasound > 14 Weeks Ordered ([id number]) Future Order: Lab Order Pap Smear With [...]
--- OUTSIDE RECORDS SUMMARY | 2017-09-13 05:58 | External Medical Summary | Continuity of Care Document ---
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, , second 8 700 PO Box [email or web address] weeks Medical 1522, gestation of [facility], [place] Ibanez, 120, [id number], [facility] [place], tel:[phone] , [place]. tel:[phone] Adam [place] Mild hyperemesis Mar-2 Rebecca In Womens gravidarumEncount 2-201 [facility]. [facility], er for suprvsn of 8 700 PO Box normal , Medical 1522, second [facility], [email or web address] weeks [place] Ibanez, gestation of 120, [id number], [place], tel:[phone] , [place]. tel:[phone] Adam [place] Maternal care for Mar-2 Rebecca In Womens Ultrasound excess 2-201 [facility] [place], growth, second 8 700 PO Box tri, [email or web address] weeks Medical 1522, gestation of [facility], [place] Ibanez, 120, [id number], [place], tel:[phone] , [place]. tel:[phone] Adam [place] Maternal care for Mar-0 Rebecca In Womens excess 1-201 [facility] [place], growth, second 8 700 PO Box tri, Medical 1522, unspEncounter for [facility] [place], suprvsn of normal [place] Ibanez, , second 120, [id number], [email or web address] weeks [place], gestation of [place], tel:[phone] , [place]. tel: [phone] Associates [place] Mild hyperemesis Feb-0 Rebecca In Womens gravidarumEncount 6-201 [facility], er for suprvsn of 8 700 PO Box normal , Medical 1522, first [email or web address] [facility], weeks gestation Hugo Ibanez, of 120, , [place], tel:[phone] , [place]. tel: [phone] Adam [place] Encounter for Luis A-0 Rebecca In Womens suprvsn of normal 8-201 [facility], , first 8 700 PO Box trimester9 weeks Medical 1522, gestation of [place], Hugo Ibanez, 120, , [place], tel:[phone] , [place]. tel: [phone] Adam [place] Threatened Sep-2 Rebecca In Womens 9-201 [facility], 7 700 PO Box Medical 1522, [place], [place] Ibanez, 120, , [place], tel:[phone] , [place]. 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, (routine) w/o abn 7 700 PO Box findingsEncounter Medical 1522, for removal of [facility], intrauterine [place] Ibanez, contraceptive 120, , device [place], tel:[phone] , [place]. tel: [phone] Adam [place] Abnormal weight Feb-2 Rebecca In Womens lossEncntr for 1-201 [facility], f/u exam aft 7 700 PO Box trtmt for cond Medical 1522, oth than [facility] [address], [facility] [place], 120, [id number], [place], tel:[phone] , [place]. tel: [phone] Adam [place] Encounter for Luis A-1 Rebecca In Womens insertion of 2-201 [facility], intrauterine 7 700 PO Box contraceptive Medical 1522, device [address]j, [facility] [place], 120, [id number], [place], tel:[phone] , [place]. tel: [phone] Adam [place] Gabriel-2 Rebecca In Womens Follow-Up, - [facility], Routine 6 700 PO Box Medical 1522, [place] [address] Mj, [facility], 120, , [facility] [place], tel:[phone] , [place]. tel: [phone] Adam [place] Mar-2 Rebecca Referring In Womens 3-201 [facility]. Provider: Health [facility], 6 700 [facility] PO Box Medical Rebecca L, 1522, [place] [address], [facility] [place], 120, [place] , [place] [address], [place], [place], tel:[phone] [place], , [place]. [id number]. tel: tel: [phone] Adam [place] Feb-1 Rebecca In Womens 9-201 [facility], 6 700 PO Box Medical 1522, [place] [address] [place]j, [facility] [place], 120, [id number], [place], tel:[phone] , [place]. tel: [phone] Adam [place] Nov-1 Rebecca In Womens 3-201 [facility], 5 700 PO Box Medical 1522, [place] [address] [place], [facility] [place], 120, [id number], [place], tel:[phone] , [place]. tel: [phone] Adam [place] Pap Smear Nov- Rebecca In Womens Screening, Cervix 3-201 [facility]. [facility], 5 700 [facility] 1522, [place] [address] jM, [place], 120, [id number], [facility] [place], tel:[phone] , [place]. tel: [phone] Adam [place] Oct-0 Rebecca In Womens 5-201 [facility]. [facility], 5 700 PO [place] Medical 1522, [place] [address], [place], 120, [id number], [facility] [place], tel:[phone] , [place]. tel: [phone] Family History Family Member Diagnosis Age At [...] name Insurance type Covered democrat ID Author[facility](s) [id number] [id number] [facility] [id number] CI [id number] Social History Type Description Quantity Date Captured Alcohol Use Details No Caffeine Use Details Unknown Tobacco Use Status Unknown Smoking Status Never smoker Vital Signs Date / Height Weight BMI Pulse Blood Temperature Respiratory Body Head BMI Time: Rate Pressure Rate Surface Circumference percentile Area 143.10 27.0 131/61 -2018 lbs 4 mm[Hg] 10:17 kg/m AM eter (2) Chief Complaint And Reason For Visit Unknown Chief Complaint And Reason For Visit Reason For Referral Reason For Referral Unknown Plan Of Care Date Type Action Status Appointment Pranav Young BOOKED Future Order: Radiology Order Complete OB Ultrasound > 14 Weeks Ordered ([id number]) Future Order: Lab Order Pap Smear With [...]
--- OUTSIDE RECORDS SUMMARY | 2017-09-13 05:58 | External Medical Summary | Continuity of Care Document ---
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 tel:[phone] Adam [place] Maternal care for Mar-2 Rebecca In Womens Ultrasound excess 2-201 [place]. [facility] NIDA, growth, second 8 700 PO Box tri, unsp20 weeks Medical 1522, gestation of [facility], Hugo Ibanez, 120, [id number], [facility] [place], tel:[phone] , [place]. tel:[phone] Adam [place] Maternal care for Mar-0 Rebecca In Womens excess 1-201 [place]. [facility] NIDA, growth, second 8 700 PO Box tri, Medical 1522, unspEncounter for [facility], suprvsn of normal Hugo Ibanez, , second 120, [id number], [email or web address] weeks [facility] gestation of [place], tel:[phone] , [place]. tel:[phone] Adam [place] Mild hyperemesis Feb-0 Rebecca In Womens gravidarumEncount 6-201 [place]. [facility] NIDA, er for suprvsn of 8 700 PO Box normal , Medical 1522, first [email or web address] [facility], weeks gestation Hugo Ibanez, of 120, , [place], tel:[phone] , [place]. tel: [phone] Adam [place] Encounter for Luis A-0 Rebecca In Womens suprvsn of normal 8-201 [place]. [facility] NIDA, , first 8 700 PO Box trimester9 weeks Medical 1522, gestation of [facility], Hugo Ibanez, 120, , [place], tel:[phone] , [place]. tel:[phone] Adam [place] Threatened Sep-2 Rebecca In Womens 9-201 [place]. Miguel ALVA, 7 700 PO Box Medical 1522, [place], Hugo Ibanez, 120, , [place], tel:[phone] , [place]. 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 [facility] NIDA, (routine) w/o abn 7 700 PO Box findingsEncounter Medical 1522, for removal of [facility], intrauterine Hugo Ibanez, contraceptive 120, , device [place], tel:[phone] , [place]. tel:[phone] Adam [place] Abnormal weight Feb-2 Rebecca In Womens lossEncntr for 1-201 [place]. [facility] NIDA, f/u exam aft 7 700 PO Box trtmt for cond Medical 1522, oth than malig [place], neoplm Hugo Ibanez, 120, , [place], tel:[phone] , [place]. tel:[phone] Adam [place] Encounter for Luis A-1 Rebecca In Womens insertion of 2-201 [place]. [facility] NIDA, intrauterine 7 700 PO Box contraceptive Medical 1522, device [facility], Dr, [facility] [place], 120, [id number], [place], tel:[phone] , [place]. tel: [phone] Adam [place] Gabriel-2 Rebecca In Womens Follow-Up, 9- [facility]. [facility] PA, Routine 6 700 PO Box Medical 1522, [place] [address] Mj, [facility] [place], 120, [id number], [place], tel:[phone] , [place]. tel: [phone] Adam [place] Mar-2 Rebecca Referring In Womens 3-201 [place]. Provider: Health PA, 6 700 [place] PO Box Medical Rebecca L, 1522, [place] [address] [address] Mj, [facility] [place], 120, [place] [id number], Antoni [facility] 120, [place], Anton[place], tel:[phone] [place], , [place]. [id number]. tel: tel: [phone] Adam [place] Feb-1 Rebecca In Womens 9-201 [place]. [facility] PA, 6 700 PO Box Medical 1522, [place] [address] Mj, [facility] [place], 120, [id number], [facility] [place], tel:[phone] , [place]. tel: [phone] Adam [place] Nov-1 Rebecca In Womens 3-201 [place]. [facility] PA, 5 700 PO Box Medical 1522, [place] [address] Mj, [facility] [place], 120, [id number], [place], tel:[phone] , [place]. tel: [phone] Adam [place] Pap Smear Oct-1 Rebecca In Womens Screening, Cervix 3-201 [place]. [facility] PA, 5 700 PO Box Medical 1522, [place] [address] Mj, [facility] [place], 120, [id number], [place], tel:[phone] , [place]. tel: [phone] Adam [place] Oct-0 Rebecca In Womens 5-201 [place]. [facility] PA, 5 700 PO Box Medical 1522, [place] [address] Mj, [facility] [place], 120, [id number], [facility] [place], tel:[phone] , [place]. tel: [phone] Family History Family Member Diagnosis Age At [...] type Covered alliance party ID Authorization(s) [employer] [id number] CI [id number] [facility] [id number] CI [id number] Social History Type Description Quantity Date Captured Alcohol Use Details No Caffeine Use Details Unknown Tobacco Use Status Unknown Smoking Status Never smoker Vital Signs Date / Height Weight BMI Pulse Blood Temperature Respiratory Body Head BMI Time: Rate Pressure Rate Surface Circumference percentile Area 132.40 25.0 121/63 -2018 lbs 1 mm[Hg] 3:59 kg/m PM eter (2) Chief Complaint And Reason For Visit Unknown Chief Complaint And Reason For Visit Reason For Referral Reason For Referral Unknown Plan Of Care Date Type Action Status Future Order: Radiology Order Complete OB Ultrasound > 14 Weeks Ordered ([id number]) Future Order: Lab Order Pap Smear With [...]
--- OUTSIDE RECORDS SUMMARY | 2017-09-13 05:58 | External Medical Summary | Continuity of Care Document ---
:1990 Author Organization 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 [facility], 7 700 PO Box [facility] [address] [address] Mj, [facility] [place], 120, [id number], [facility] [place], tel:[phone] , [place]. tel: [phone] Adam [place] Threatened Sep-2 Rebecca In Womens 9-201 [facility]. [facility] NIDA, 7 700 PO Box Medical 1522, [address], [facility] [place], 120, [id number], [place] [place], tel:[phone] , [place]. 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 [facility] PA, (routine) w/o abn 7 700 PO Box findingsEncounter Medical 1522, for removal of [place] Mj, intrauterine , [facility], contraceptive 120, , device [place], tel:[phone] , [place]. tel: [phone] Adam [place] Abnormal weight Feb-2 Rebecca In Womens lossEncntr for f/u 1-201 [place]. [facility] PA, exam aft trtmt for 7 700 PO Box cond oth than Medical 1522, malig neoplm [address] Dr Mj, [facility] [place], 120, [id number], [facility] [place], tel:[phone] , [place]. tel: [phone] Associates [facility] Encounter for Luis A-1 Rebecca In Womens insertion of 2-201 [place]. [facility] NIDA, intrauterine 7 700 PO Box contraceptive Medical 1522, device [address], [facility] [place], 120, [id number], [place], tel:[phone] , [place]. tel: [phone] Adam [place] Gabriel-2 Rebecca In Womens Follow-Up, Routine 9-201 [place]. [facility] NIDA, 6 700 PO Box Medical 1522, [address], [facility] [place], 120, [id number], [place] [place], tel:[phone] , [place]. tel: [phone] Adam [place] Mar-2 Rebecca Referring In Womens 3-201 [place]. Provider: Health NIDA, 6 700 [place] PO Box Medical Rebecca L, 1522, [place] [address], [facility] Medical [place], 120, [place] , Antoni Hugo 120, [place], Anton[place], tel: [phone] [place], , [place]. [id number]. tel: tel: [phone] Adam [place] Feb- Rebecca In Womens 9-201 [place]. [facility] PA, 6 700 PO Box Medical 1522, [address] [address] Mj, [facility] [place], 120, [id number], [facility] [place], tel: [phone] , [place]. tel: [phone] dAam [place] Nov-1 Rebecca In Womens 3-201 [place]. [facility] PA, 5 700 PO Box Medical 1522, [address] [address] Mj, [facility] [place], 120, [id number], [facility] [place], tel:[phone] , [place]. tel: [phone] Adam [place] Pap Smear Oct- Rebecca In Womens Screening, Cervix 3-201 [place]. [facility] PA, 5 700 PO Box Medical 1522, [address] Mj, [facility] [place], 120, [id number], [facility] [place], tel: [phone] , [place]. tel: [phone] Adam [place] Oct-0 Rebecca In Womens 5-201 [place]. [facility] PA, 5 700 PO Box Medical 1522, [address] jM, [facility] [place], 120, [id number], [facility] [place], tel: [phone] , [place]. tel: [phone] Family History Family Member Diagnosis Age At [...] Insurance type Covered alliance party ID Authorization(s) [facility] [id number] [facility] [id number] Social History Type Description Quantity Date Captured [...]
--- OUTSIDE RECORDS SUMMARY | 2017-09-13 05:58 | External Medical Summary | Continuity of Care Document ---
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 tel: [phone] Associates [facility] Polyhydramnios, Aug-1 Rebecca In Womens Ultrasound third trimester, [facility]. [facility] PA, not applicable or 8 700 PO Box unsp37 weeks Medical 1522, gestation of [facility], Hugo Ibanez, 120, [id number], [place], tel:[phone] , [place]. tel: [phone] Adam [place] Polyhydramnios, Aug-1 Rebecca In Womens third trimester, [place]. [facility] PA, not applicable or 8 700 PO Box unspEncounter for Medical 1522, suprvsn of normal [facility], , third Hugo Ibanez, trimesterEncounte 120, [id number], r For [place], [place] Screening For [place], tel:[phone] [id number] weeks gestation , [place]. of tel: [phone] Adam [place] Maternal care for Aug-1 Rebecca In Womens Ultrasound excess [facility]. [facility] PA, growth, third 8 700 PO Box trimester, Medical 1522, unspPolyhydramnio [facility], s, third Hugo Ibanez, trimester, not 120, [id number], applicable or [place], [place] unsp35 weeks [place], tel:[phone] gestation of [id number] , [place]. tel: [phone] [facility] Mild hyperemesis Wilmar-0 Sobbing Referring In Womens gravidarumMaterna 5-201 Deepak. Provider: coby Pleitez care for excess 8 700 Deepak PO Box growth, Medical Sob[place] L, 1522, third trimester, Center [address] [place] [address], unspPolyhydramnio [facility] [place], s, third Suite Center [id number], trimester, not 120, Drive [place] applicable or Antoni, [facility] 120, tel:+ unsp35 weeks Anton[place], [place] [address], [place], [address]. [place]. tel: tel: [phone] Adam [place] Maternal care for Wilmar-0 Rebecca In Womens Ultrasound excess 5-201 [place]. Health NIDA, growth, third 8 700 PO Box trimester, Medical 1522, unspPolyhydramnio [facility], s, third Hugo Ibanez, trimester, not 120, , applicable or Antoni, unsp35 weeks [place], tel: gestation of , [place]. tel: [phone] Adam [place] Encounter for Gabriel-1 Rebecca In Womens suprvsn of normal 8-201 [place]. [facility] PA, , third 8 700 PO Box [id number] weeks Medical 1522, gestation of [facility], Hugo Ibanez, 120, , [place], tel:[phone] , [place]. tel: [phone] Adam [place] Mild hyperemesis Gabriel-0 Sobbing In Womens gravidarumMaterna 5-201 Deepak. Health NIDA l care for excess 8 700 PO Box growth, Medical 1522, third trimester, [facility], [address], [place], gestation of [id number], 120, [place], [place], [address], [place]. tel: [phone] Adam [place] Encounter for May-0 Rebecca In Womens suprvsn of normal 9-201 [place]. Health NIDA, , second 8 700 PO Box [id number] weeks Medical 1522, gestation of [facility], Hugo Ibanez, 120, , [place], tel:+ [phone] , [place]. tel:[phone] Associates [facility] Encounter for Apr-1 Rebecca In Womens suprvsn of normal 7-201 [place]. [facility] PA, , second 8 700 PO Box [email or web address] weeks Medical 1522, gestation of [facility], Hugo Ibanez, 120, , [place], tel:+ [phone] , [place]. tel:[phone] Associates [facility] Mild hyperemesis Mar-2 Rebecca In Womens gravidarumEncount 2-201 [place]. Health PA, er for suprvsn of 8 700 PO Box normal , Medical 1522, second [facility], [id number] weeks Hugo Ibanez, gestation of 120, , [place], tel:[phone] , [place]. tel: [phone] Associates [facility] Maternal care for Mar-2 Rebecca In Womens Ultrasound excess 2-201 [place]. Health PA, growth, second 8 700 PO Box tri, unsp20 weeks Medical 1522, gestation of [facility], Hugo Ibanez, 120, , [place], tel:[phone] , [place]. tel: [phone] [facility] Maternal care for Mar-0 Rebecca In Womens excess 1-201 [place]. [facility] PA, growth, second 8 700 PO Box tri, Medical 1522, unspEncounter for [facility], suprvsn of normal Hugo Ibanez, , second 120, , [id number] weeks [place], gestation of [place], tel:+ [phone] , [place]. tel: [phone] [facility] Mild hyperemesis Feb-0 Rebecca In Womens gravidarumEncount 6-201 [place]. [facility] PA, er for suprvsn of 8 700 PO Box normal , Medical 1522, first [email or web address] [facility], weeks gestation Hugo Ibanez, of 120, , [place], tel:[phone] , [place]. tel: [phone] [facility] Encounter for Luis A-0 Rebecca In Womens suprvsn of normal 8-201 [place]. Health NIDA, , first 8 700 PO Box trimester9 weeks Medical 1522, gestation of [facility], , [place], 120, , [place], tel:[phone] , [place]. tel:[phone] [facility] Threatened Sep-2 Rebecca In Womens 9-201 [place]. Health NIDA, 7 700 PO Box Medical 1522, [place] Dr Mj, [facility] [place], 120, , [facility] [place], tel:[phone] , [place]. 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 Health NIDA, (routine) w/o abn 7 700 PO Box findingsEncounter Medical 1522, for removal of [facility], intrauterine , [facility], contraceptive 120, , device [place], tel:[phone] , [place]. tel: [phone] [facility] Abnormal weight Feb-2 Rebecca In Womens lossEncntr for 1-201 [place]. Health NIDA, f/u exam aft 7 700 PO Box trtmt for cond Medical 1522, [facility] [place] neoplm , [facility] [place], 120, , [place], tel:[phone] , [place]. tel: [phone] [facility] Encounter for Luis A-1 Rebecca In Womens insertion of 2-201 [place]. Health NIDA, intrauterine 7 700 PO Box contraceptive Medical 1522, device [place] [address] [place], 120, , [place], tel:[phone] , [place]. tel:[phone] Adam [place] Gabriel-2 Rebecca In Womens Follow-Up, 9- [facility]. [facility] PA, Routine 6 700 [facility] 1522, [place] Dr Mj, [facility] [place], 120, [id number], [place], tel:[phone] , [place]. tel: [phone] Associates [facility] Mar-2 Rebecca Referring In Womens 3-201 [place]. Provider: Health NIDA, 6 700 Herm[facility] Rebecca L, 1522, [place] [address], [facility] [place], 120, [place] [id number], Antoni [facility] 120, [place], [place], tel:[phone] [place], , [place]. [id number]. tel: tel: [phone] Associates [facility] Mar-1 Rebecca In Womens 9-201 [place]. Health NIDA, 6 700 [facility] 1522, [address], [facility] [place], 120, [id number], [place], tel:[phone] , [place]. tel: [phone] [facility] Nov-1 Rebecca In Womens 3-201 [place]. Health NIDA, 5 700 [facility] 1522, [place] Dr Mj, [facility] [place], 120, [id number], [place], tel:[phone] , [place]. tel: [phone] Adam [place] Pap Smear Oct-1 Rebecca In Womens Screening, Cervix 3-201 [place]. Health NIDA, 5 700 [facility] 1522, [place] Dr Mj, [facility] [place], 120, [id number], [place], tel:[phone] , [place]. tel: [phone] Adam [place] Oct-0 Rebecca In Womens 5-201 [place]. Health PA, 5 700 [facility] 1522, [place] Dr Mj, [facility] [place], 120, [id number], [place], tel:[phone] , [place]. tel: [phone] Family History Family Member Diagnosis Age At [...] Insurance type Covered democrat ID Authorization(s) [employer] 46937 CI [id number] [employer] [id number] CI [id number] [employer] [id number] CI [id number] Social History Type Description Quantity Date Captured [...] Pranav Young BOOKED Future Order: Radiology Order Ultrasound OB Follow-up ([id number]) Ordered Future Order: Radiology Order Biophysical Profile without NST Ordered ([id number]) Future Order: Radiology Order Complete OB Ultrasound > 14 Weeks Ordered ([id number]) Future Order: Radiology Order Biophysical Profile without NST Ordered ([id number]) Future Order: Radiology Order Biophysical Profile without NST Ordered ([id number]) Future Order: Lab Order Pap Smear With [...]
--- OUTSIDE RECORDS SUMMARY | 2017-09-13 05:58 | External Medical Summary | Continuity of Care Document ---
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 [facility] NIDA, , third 8 700 [address] [email or web address] weeks Medical 1522, gestation of [facility] Hugo [place]banez [place], 120, [id number], [place], [facility], tel:[phone] , [place]. tel: [phone] Adam [place] Mild hyperemesis Gabriel-0 Sobbing In Womens gravidarumMaterna 5-201 Deepak. Health NDIA l care for excess 8 700 PO Box growth, Medical 1522, third trimester, [facility], [email or web address], [place], gestation of [id number], 120, [place], tel:[phone], [place]. tel:[phone] Adam [place] Encounter for May-0 Rebecca In Womens suprvsn of normal 9-201 [facility] [place], , second 8 700 [address] [email or web address] weeks Medical 1522, gestation of [facility] Hugo Ibanez, 120, [id number], [place], tel:[phone] , [place]. tel: [phone] Associates [place] Encounter for Apr-1 Rebecca In Womens suprvsn of normal 7-201 [facility] [place], , second 8 700 PO [address] [email or web address] weeks Medical 1522, gestation of [facility], Hugo Ibanez, 120, , [place], [place], tel:[phone] , [place]. tel:[phone] Associates nAtoni Mild hyperemesis Mar-2 Rebecca In Womens gravidarumEncount 2-201 [facility] PA, er for suprvsn of 8 700 PO Box normal , Medical 1522, second [facility], [email or web address] weeks [place] Ibane[place], gestation of 120, , [place], [place], tel:[phone] , [place]. tel: [phone] Associates [place] Maternal care for Mar-2 Rebecca In Womens Ultrasound excess 2-201 [facility] PA, growth, second 8 700 PO Box tri, [email or web address] weeks Medical 1522, gestation of [facility], [place] Ibanez, 120, , [place], [place], tel:[phone] , [place]. tel: [phone] Associates [place] Maternal care for Mar-0 Rebecca In Womens excess 1-201 [facility] PA, growth, second 8 700 PO Box tri, Medical 1522, unspEncounter for [facility], suprvsn of normal [place] Ibanez, , second 120, [id number], [email or web address] weeks [place], gestation of [place], tel:[phone] , [place]. tel:[phone] Associates [place] Mild hyperemesis Feb-0 Rebecca In Womens gravidarumEncount 6-201 [facility] PA, er for suprvsn of 8 700 PO Box normal , Medical 1522, first [email or web address] [facility], weeks gestation Hugo Ibanez, of 120, , [place], tel:[phone] , [place]. tel:[phone] Associates [place] Encounter for Luis A-0 Rebecca In Womens suprvsn of normal 8-201 [facility] NIDA, , first 8 700 PO Box [email or web address] weeks Medical 1522, gestation of [facility], Hugo Ibanez, 120, , [place], [place], tel:[phone] , [place]. tel:[phone] Associates [place] Threatened Sep-2 Rebecca In Womens 9-201 [facility] NIDA, 7 700 PO Box Medical 1522, [place], Hugo Ibanez, 120, , [place], [place], tel:[phone] , [place]. 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 PA, (routine) w/o abn 7 700 PO Box findingsEncounter Medical 1522, for removal of [facility], intrauterine [place]banez, contraceptive 120, , device [place], [place], tel:[phone] , [place]. tel:[phone] Associates [place] Abnormal weight Feb-2 Rebecca In Womens lossEncntr for 1-201 [facility] PA, f/u exam aft 7 700 PO Box trtmt for cond Medical 1522, [facility] [place], neoplm [place] Ibanez, 120, , [place], [place], tel:[phone] , [place]. tel:[phone] [facility] [place] Encounter for Luis A-1 Rebecca In Womens insertion of 2-201 [facility] NIDA, intrauterine 7 700 PO Box contraceptive Medical 1522, device [place], Hugo Ibanez, 120, , [place], [place], tel:[phone] , [place]. tel:[phone] Adam [place] Gabriel-2 Rebecca In Womens Follow-Up, 9- [facility] PA, Routine 6 700 [facility] Medical 1522, [address] Mj, [facility] [place], 120, [id number], [place], [place], tel:[phone] , [place]. tel: [phone] Adam [place] Mar-2 Rebecca Referring In Womens 3-201 [facility]. Provider: Miguel ALVA, 6 700 [facility] PO Box Medical Rebecca L, 1522, [address], [facility] [place], 120, [place] [id number], [place], [facility] 120, [place], [place], tel:[phone] [place], , [place]. [id number]. tel: tel:[phone] Adam [place] Feb-1 Rebecca In Womens 9-201 [facility] NIDA, 6 700 [facility] 1522, [address] Mj, [facility] [place], 120, [id number], [facility] [place], tel:[phone] , [place]. tel: [phone] Adam [place] Nov-1 Rebecca In Womens 3-201 [facility] NIDA, 5 700 [facility] 1522, [address], [facility] [place], 120, [id number], [facility] [place], tel:[phone] , [place]. tel: [phone] Adam [place] Pap Smear Oct-1 Rebecca In Womens Screening, Cervix 3-201 [facility] NIDA, 5 700 [facility] 1522, [address], [facility] [place], 120, [id number], [place], tel:[phone] , [place]. tel: [phone] Adam [place] Oct-0 Rebecca In Womens 5-201 [facility] NIDA, 5 700 [facility] Medical 1522, [address], [facility] [place], 120, [id number], [facility] [place], tel:[phone] , [place]. tel: [phone] Family History Family Member Diagnosis Age At [...] type Covered constitution party ID Authorization(s) [employer] 26408 CI [id number] [employer] 35775 CI [id number] Social History Type Description Quantity Date Captured Alcohol Use Details No Caffeine Use Details Unknown Tobacco Use Status Unknown Smoking Status Never smoker Vital Signs Date / Height Weight BMI Pulse Blood Temperature Respiratory Body Head BMI Time: Rate Pressure Rate Surface Circumference percentile Area 7 0 1:46 kg/m PM eter (2) 148.10 27.9 128/68 2018 lbs 8 mm[Hg] 2:10 kg/m PM eter (2) Chief Complaint And Reason For Visit Unknown Chief Complaint And Reason For Visit Reason For Referral Reason For Referral Unknown Plan Of Care Date Type Action Status Appointment Pranav Young BOOKED Appointment Pranav Young BOOKED Appointment Pranav Young BOOKED Appointment Pranav Young BOOKED Future Order: Radiology Order Complete OB Ultrasound > 14 Weeks Ordered ([id number]) Future Order: Lab Order Pap Smear With [...]
[2017-09-13] MEDS ORDERED: CARBOPROST 250 MCG/ML INJECTION IM PRN (05:59)
[2017-09-13] MEDS ORDERED: LIDOCAINE 1% (10mg/ml) 2mL INJ PF SDV ID PRN (05:59)
[2017-09-13] MEDS ORDERED: SALINE FLUSH 10ml SYRINGE IV PRN (05:59)
[2017-09-13] MEDS ORDERED: METHYLERGONOVINE 0.2 MG/ML INJECTION IM PRN (05:59)
[2017-09-13] MEDS ORDERED: MAG-AL + SIM ORAL LIQUID 30ml PO PRN ×2 (05:59→13:51)
[2017-09-13] MEDS ORDERED: ACETAMINOPHEN 500 MG TABLET PO PRN ×2 (05:59→13:51)
[2017-09-13] MEDS ORDERED: CALCIUM CARBONATE Chewable 500mg TABLET PO PRN ×2 (05:59→13:51)
--- OUTSIDE RECORDS SUMMARY | 2017-09-13 05:59 | External Medical Summary | Continuity of Care Document ---
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) w/o abn findings Follow-Up, Routine - Maternal care for excess growth, - second tri, unsp 20 weeks gestation of - Mild hyperemesis [...] second trimester 20 weeks gestation of - Abnormal weight loss Encntr for f/u exam aft trtmt for cond oth betzaida paez neoplm Encounter for removal of intrauterine - contraceptive device Pap Smear Screening, Cervix - Encounter for insertion of - intrauterine contraceptive device Encounter for suprvsn of normal - , first trimester 9 weeks gestation of - Herpes Simplex Virus Active Active Procedures Procedure Date Ultrasound exam of preg uterus, complete Results Test Name Date and Time Measure [...] PO Box normal , Medical 1522, second [facility], [email or web address] weeks [place]banez, gestation of 120, , [facility], tel:[phone] , [place]. tel:[phone] Adam [place] Maternal care for Mar-2 Rebecca In Womens Ultrasound excess 2-201 [facility] NIDA, growth, second 8 700 PO Box tri, [email or web address] weeks Medical 1522, gestation of [facility], Hugo Ibanez, 120, [id number], [facility] [place], tel:[phone] , [place]. tel:[phone] Adam [place] Maternal care for Mar-0 Rebecca In Womens excess 1-201 [facility]. [facility] NIDA, growth, second 8 700 PO Box tri, Medical 1522, unspEncounter for [facility], suprvsn of normal Hugo Ibanez, , second 120, [id number], [email or web address] weeks [place], gestation of [place], tel:[phone] , [place]. tel:[phone] Adam [place] Mild hyperemesis Feb-0 Rebecca In Womens gravidarumEncount 6-201 [facility] NIDA, er for suprvsn of 8 700 PO Box normal , Medical 1522, first [email or web address] [facility], weeks gestation Hugo Ibanez, of 120, , [place], [place], tel:[phone] , [place]. tel: [phone] Adam [place] Encounter for Luis A-0 Rebecca In Womens suprvsn of normal 8-201 [facility] NIDA, , first 8 700 PO Box trimester9 weeks Medical 1522, gestation of [facility], [place] Ibanez, 120, , [place], [place], tel:[phone] , [place]. tel:[phone] Adam [place] Threatened Sep-2 Rebecca In Womens 9-201 [facility]. Miguel ALVA, 7 700 PO Box Medical 1522, [place], [place]z, 120, , [place], [place], tel:[phone] , [place]. 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 NIDA, (routine) w/o abn 7 700 PO Box findingsEncounter Medical 1522, for removal of [facility], intrauterine [place] Ibanez, contraceptive 120, , device [place], [place], tel:[phone] , [place]. tel:[phone] Adam [place] Abnormal weight Feb-2 Rebecca In Womens lossEncntr for 1-201 [facility] NIDA, f/u exam aft 7 700 PO Box trtmt for cond Medical 1522, oth than malig [place], neoplm [place]z, 120, , [place], [place], tel:[phone] , [place]. tel:[phone] Adam [place] Encounter for Luis A-1 Rebecca In Womens insertion of 2-201 [facility]. [facility] NIDA, intrauterine 7 700 PO Box contraceptive Medical 1522, device [facility], Dr, [email or web address] [place], 120, [id number], [place], [place], tel:[phone] , [place]. tel: [phone] Adam [place] Gabriel-2 Rebecca In Womens Follow-Up, 9- [facility] PA, Routine 6 700 PO Box Medical 1522, [address] Mj, [facility] [[email or web address] [place], 120, [id number], [place], [place], tel:[phone] , [place]. tel: [phone] Adam [place] Mar-2 Rebecca Referring In Womens 3-201 [facility]. Provider: Health PA, 6 700 [facility] PO Box Medical Rebecca L, 1522, [place] [address] [address] Mj, [facility] [place], 120, Lucile [id number], [place] [facility] [[email or web address] 120, [place], [place], tel:[phone], , [place]. [id number]. tel: tel: [phone] Adam [place] Feb-1 Rebecca In Womens 9-201 [facility]. [facility] PA, 6 700 PO Box Medical 1522, [address] Mj, [email or web address] [place], 120, [id number], [facility] [place], tel:[phone] , [place]. tel: [phone] Adam [place] Nov-1 Rebecca In Womens 3-201 [facility] PA, 5 700 PO Box Medical 1522, [address] Mj, [facility] [[email or web address] [place], 120, [id number], [place], tel:[phone] , [place]. tel: [phone] Adam [place] Pap Smear Oct-1 Rebecca In Womens Screening, Cervix 3-201 [facility] PA, 5 700 PO Box Medical 1522, [address] Mj, [facility] [[email or web address] [place], 120, [id number], [place], tel:[phone] , [place]. tel: [phone] Adam [place] Oct-0 Rebecca In Womens 5-201 [facility] PA, 5 700 PO Box Medical 1522, [address] Mj, [place], 120, [id number], [facility] [place], tel:[phone] , [place]. tel: [phone] Family History Family Member Diagnosis Age At [...] Insurance type Covered democrat ID Authorization(s) [employer] 79435 CI [id number] [facility] [id number] Social History Type Description Quantity Date Captured [...] Complete OB Ultrasound > 14 Weeks Ordered ([id number]) Future Order: Lab Order Pap Smear With [...]
[2017-09-13 06:27] VITALS: BMI 28.7
[2017-09-13] MEDS ORDERED: AMPICILLIN 2 GM in NS 100 ML IV ONE (06:30)
[2017-09-13] MEDS ORDERED: OXYTOCIN DRIP 30 UNIT/500 ML ML IV PRN (06:45)
[2017-09-13] MEDS ORDERED: D5LR 1,000 ML IV PRN (06:45)
[2017-09-13] MEDS: LR 1,000 ML IV PRN ×2 (07:02→10:46)
--- NOTE | 2017-09-13 07:39 | Progress Note ---
OB PP Progress Note Free Text - Date Date: 09/13/17 - Progress Note Progress Note: SSE performed, no HSV lesions seen. AROM performed, clear fluid.
[2017-09-13] MEDS ORDERED: AMPICILLIN 1 GM in NS 100 ML IV SCH (10:30)
[2017-09-13] MEDS ORDERED: NALOXONE 0.4 MG/ML INJECTION IVP PRN (11:29)
[2017-09-13] MEDS ORDERED: DiphenhydrAMINE 50 MG/ML INJECTION IVP PRN (11:29)
[2017-09-13] MEDS ORDERED: ONDANSETRON 4 MG/2 ML INJECTION IVP PRN (11:29)
[2017-09-13] MEDS ORDERED: ROPIVACAINE 1% 10MG/ML INJ 200 MG, SUFentanil 50 MCG in NS 100 ML EPI PRN (11:29)
--- NOTE | 2017-09-13 11:29 | Anesthesia Preoperative Report ---
Anesthesia Epidural/Spinal Rec - Date and Time Date: 09/13/17 Preoperative Diagnosis: Active labor Procedure: Labor Epidural Plan: Epidural - Vital Signs Vital Signs: Temperature 98.6 F 09/13/17 06:17 Pulse Rate 93 09/13/17 06:17 Respiratory Rate 18 09/13/17 06:17 Blood Pressure 129/65 09/13/17 06:17 Pulse Oximetry 97 09/13/17 06:17 NPO since: 0700 /Para: P:1 Height and Weight: 61 inches - Medictaions & Allergies Inpatient Medications: Current Medications Acetaminophen (Tylenol) 500 - 1,000 mg PO Q4H PRN PRN Reason: Pain Al Hydroxide/Mg Hydroxide (Maalox Plus) 30 ml PO Q3H PRN PRN Reason: Indigestion Calcium Carbonate (Tums) 500 - 1,000 mg PO Q2H PRN PRN Reason: Indigestion Carboprost Tromethamine (Hemabate) 250 mcg IM O PRN PRN Reason: .Downtime Ampicillin Sodium 1 gm/ Sodium (Chloride) 100 mls @ 200 mls/hr IV Q4H BRITTNEY Last Admin: 09/13/17 10:46 Dose: 200 mls/hr Dextrose/Lactated Ringer's (Dextrose 5%-Lactated Ringers) 1,000 mls @ 125 mls/ hr IV .Q8H PRN PRN Reason: Labor Last Admin: 09/13/17 07:02 Dose: 125 mls/hr Oxytocin (Pitocin Drip) 30 unit in 500 mls @ 2 mls/hr IV .Q24H PRN; Protocol PRN Reason: Induction/Augmentation Last Admin: 09/13/17 07:02 Dose: 2 mls/hr Lactated Ringer's (Lactated Ringers) 1,000 mls @ 999 mls/hr IV .Q1H1M PRN Last Admin: 09/13/17 10:46 Dose: 999 mls/hr Lidocaine HCl (Xylocaine-Mpf 1% Vial) 0.2 mg ID O PRN PRN Reason: IV Start Methylergonovine Maleate (Methergine) 0.2 mg IM O PRN Misoprostol (Cytotec) 800 mcg AR ONCE PRN Sodium Chloride (Iv Flush) 10 - 80 ml IV PRN PRN PRN Reason: Flushing Allergies/Adverse Reactions: Allergies Allergy/AdvReac Type Severity Reaction Status Date / Time No Known Allergies Allergy Verified 08/26/17 10:12 - Home Medications Home Medications: Home Medications Medication Instructions Recorded Confirmed Type Valacyclovir HCl (Valacyclovir) 1 tab PO DAILY #30 tab 05/31/15 History Pnv No.95/Ferrous Fum/Folic AC 1 tab PO DAILY 08/26/17 08/26/17 History [ Tablet] Valacyclovir [Valtrex] 1 tab PO DAILY 08/26/17 08/26/17 History - Medical History Neuro/Musculoskeletal: Denies: Depression Other History: Reports: Now DENIES: Anesthesia Reactions - Surgical History GI Surgery/Treatments: Reports: Appendectomy (2009) Reproductive Surgery/Treatment: DENIES: Section Anesthesia Reactions: None Hx Family Anesthesia Reaction: No History of Motion Sickness: No - Social History Smoking Status: Never smoker Second Hand Exposure: No Substance Use Type: does not use Alcohol Intake Frequency: does not drink Hx Chewing Tobacco Use: No - Pertinent Findings Lab Data: CBC and BMP 09/13/17 06:12 EKG Rhythm: Normal Sinus Rhythm - Physical Exam Respiratory Exam: lungs clear Cardiovascular Exam: regular rate and rhythm - Airway Assessment Mallampati Score: II TMD: 3 Fingerbreadths Neck Extension: good Overall Assessment: may be difficult intubation - ASA ASA Score: 2 - Discussion Discussion: Discussed risks/options/alternatives of anesthesia and questions answered. Patient consents. Nursing pain assessment noted. Anesthesia Discussion: spouse Attestation Statement: Prior to the delivery of any anesthetic medication, I examined the patient, developed the plan, obtained the patient's consent and discussed the risk and benefits of the procedure with the patient/guardian.
[2017-09-13] MEDS ORDERED: DiphenhydrAMINE 25 MG CAPSULE PO PRN (13:51)
[2017-09-13] MEDS ORDERED: HYDROCORTISONE 2.5% CREAM 30gm RECTALLY PRN (13:51)
[2017-09-13] MEDS ORDERED: HYDROCODONE/APAP 5mg/325mg TABLET PO PRN (13:51)
[2017-09-13] MEDS: IBUPROFEN 800 MG TABLET PO SCH (16:08)
[2017-09-13 16:19] VITALS: RESP 16
[2017-09-14] MEDS: IBUPROFEN 800 MG TABLET PO SCH ×4 (00:35→22:23)
--- NOTE | 2017-09-14 08:15 | OB/GYN Progress Note ---
OB-PP Progress Note - General PPD1 Maternal Group B Strep: Positive - Subjective Date: 09/14/17 Lochia: Moderate Pain: controlled Voiding: voiding Nausea or Vomiting Present: No - Objective Vital Signs: Last Vital Signs Temp 97.6 F 09/14/17 00:35 Pulse 52 L 09/14/17 00:35 Resp 16 09/14/17 00:35 BP 100/56 09/14/17 00:35 Pulse Ox 97 09/14/17 00:35 Urine Output: good General: alert and oriented Respiratory: non-labored Abdomen: fundus firm Extremities: non-tender - Assessment Assessment: - Plan Plan: routine care (plan discharge tomorrow.)
[2017-09-14] MEDS ORDERED: DOCUSATE CALCIUM 240 MG CAPSULE PO SCH (09:00)
--- NOTE | 2017-09-14 09:15 | Labor and Delivery Note ---
DATE: 09/13/2017 BRIEF DESCRIPTION Ms. Young progressed very well in the first stage of labor. She began to push with excellent effort at the complete and +2 presentation. She pushed for a few contractions, delivering the head in the OA position. Baby was bulb suctioned on the perineum. With two further pushes she delivered the baby in total. Baby was then further bulb suctioned and placed on mother's abdomen. After about 2 minutes the cord was doubly clamped. It was cut by the baby's father, Adam. This is a liveborn female with Apgars of 8/9/9. After about 25 minutes the placenta delivered spontaneously intact. It had a normal configuration and a normal appearing three vessel cord. The perineum was intact. Total blood loss was approximately 300 cc. At the time of this dictation mother and baby are doing well. ELISSA
--- NOTE | 2017-09-14 18:19 | Anesthesia Postoperative Note ---
- Date and Time Date: 09/14/17 Time: 18:19 - Status Patient Participated in Evaluation: Patient Participated in Person Vital Signs: Temperature 98.6 F 09/14/17 17:06 Pulse Rate 63 09/14/17 17:06 Respiratory Rate 16 09/14/17 17:06 Blood Pressure 119/59 09/14/17 17:06 Pulse Oximetry 100 09/14/17 08:30 Respiratory Function: Airway Patent Mental Status: Alert and Oriented Pain Intensity: 0 Hydration: Taking PO Fluids Nausea/Vomiting: None Complications During Recover: None Apparent - Follow-Up Instructions Instructions: Per Surgeon
[2017-09-15 06:35] VITALS: BP 113/65; PULSE 65; TEMP 98.2; O2SAT 97
== END 2017-09-15 09:07 | disposition home or self-care (01) | DRG 774 ==
LOC: MC 05:50
PROVIDERS: ADMIT Obstetrics & Gynecology; ATTEND Obstetrics & Gynecology